=== PATIENT | female | born 1945 | race African-American/Black ===

== ENCOUNTER 2017-09-04 23:04 | Inpatient (IN) | payer OTHER ==
[2017-09-05 01:23] LABS: Urine Blood NEGATIVE (NEG); Urine Glucose NEGATIVE (NEG); Urine Protein 2+ (NEG)
[2017-09-05] MEDS ORDERED: MECLIZINE HCL 12.5 MG TAB ONE (01:59)
[2017-09-05] MEDS ORDERED: CEFTRIAXONE/SWI 1gm 1 GM/10 ML SYR ONE (02:00)
[2017-09-05] MEDS ORDERED: NA CHLORIDE 0.9% 1,000 ML ONE ×2 (02:00→05:58)
[2017-09-05] MEDS ORDERED: ONDANSETRON 4 MG/2 ML VIAL ONE (02:00)
[2017-09-05 02:51] LABS: Protime INR 0.94
[2017-09-05 03:03] LABS: Potassium 4.5 mEq/L (3.6-5.0)
[2017-09-05 03:06] LABS: Absolute Monocytes 0.2 K/uL (0.1-1.3); Absolute Neutrophil 10.7 K/uL (1.8-8.0); Basophils % 0.4 % (0-1.3); Hematocrit 36.5 % (36.0-45.0); Lymphocytes % 8.6 % (15.3-44.8); MCH 26.4 pg (27.0-35.0); MCV 82.8 fL (80-100); MPV 8.9 fL (7.6-11.3); Monocytes % 1.8 % (3.3-12.3); RBC Red Blood Cell Count 4.41 M/uL (3.86-4.86)
[2017-09-05 03:09] LABS: Bilirubin Direct 0.1 mg/dL (0-0.2); Bilirubin Total 0.5 mg/dL (0.3-1.2); Magnesium 2.1 mg/dL (1.8-2.5); Protein, Total 7.9 g/dL (6.0-8.3)
[2017-09-05 03:12] LABS: CKMB Creatine Kinase MB 5.6 ng/ml (0.3-4.0)
--- NOTE | 2017-09-05 03:23 | EDPHYS ---
Physician Documentation [facility] Name: Svetlana Rader Age: 72 yrs Sex: Female : 1945 Arrival Date: 09/04/2017 Time: 23:10 Bed 20 Private MD: ED Physician Butch Park HPI: 09/05 01:12 This 72 yrs old Black Female presents to ER via Ambulatory with complaints of Vomiting, joanie Dizziness. 01:12 The patient presents to the emergency department with nausea, vomiting. Onset: The joanie symptoms/episode began/occurred just prior to arrival, yesterday. Possible causes: unknown. The symptoms are aggravated by nothing. The symptoms are alleviated by nothing. Associated signs and symptoms: Pertinent positives: nausea, vomiting. Severity of symptoms: At their worst the symptoms were mild in the emergency department the symptoms are unchanged. The patient has not experienced similar symptoms in the past. Historical: - Allergies: 09/04 23:48 tramadol; kb1 - Home Meds: 23:48 Metoprolol Tartrate Oral [Active]; valsartan oral oral [Active]; kb1 - PMHx: 23:48 Hypertension; kb1 - Immunization history:: Pneumococcal vaccine is up to date, Flu vaccine is up to date. - Social history:: Smoking status: Patient/guardian denies using tobacco. - Family history:: not pertinent. ROS: 09/05 01:12 Constitutional: Negative for fever, chills, and weight loss, Eyes: Negative for injury, joanie pain, redness, and discharge, ENT: Negative for injury, pain, and discharge, Neck: Negative for injury, pain, and swelling, Cardiovascular: Negative for chest pain, palpitations, and edema, Respiratory: Negative for shortness of breath, cough, wheezing, and pleuritic chest pain, Abdomen/GI: Negative for abdominal pain, nausea, vomiting, diarrhea, and constipation, Back: Negative for injury and pain, : Negative for injury, bleeding, discharge, and swelling, MS/Extremity: Negative for injury and deformity, Skin: Negative for injury, rash, and discoloration, Psych: Negative for depression, anxiety, suicide ideation, homicidal ideation, and hallucinations, Allergy/Immunology: Negative for hives, rash, and allergies, Endocrine: Negative for neck swelling, polydipsia, polyuria, polyphagia, and marked weight changes, Hematologic/Lymphatic: Negative for swollen nodes, abnormal bleeding, and unusual bruising. Neuro: Positive for headache. Exam: 01:12 Constitutional: This is a well developed, well nourished patient who is awake, alert, joanie and in no acute distress. Head/Face: Normocephalic, atraumatic. Eyes: Pupils equal round and reactive to light, extra-ocular motions intact. Lids and lashes normal. Conjunctiva and sclera are non-icteric and not injected. Cornea within normal limits. Periorbital areas with no swelling, redness, or edema. ENT: Nares patent. No nasal discharge, no septal abnormalities noted. Tympanic membranes are normal and external auditory canals are clear. Oropharynx with no redness, swelling, or masses, exudates, or evidence of obstruction, uvula midline. Mucous membranes moist. Neck: Trachea midline, no thyromegaly or masses palpated, and no cervical lymphadenopathy. Supple, full range of motion without nuchal rigidity, or vertebral point tenderness. No Meningismus. Chest/axilla: Normal chest wall appearance and motion. Nontender with no deformity. No lesions are appreciated. Cardiovascular: Regular rate and rhythm with a normal S1 and S2. No gallops, murmurs, or rubs. Normal PMI, no JVD. No pulse deficits. Respiratory: Lungs have equal breath sounds bilaterally, clear to auscultation and percussion. No rales, rhonchi or wheezes noted. No increased work of breathing, no retractions or nasal flaring. Abdomen/GI: Soft, non-tender, with normal bowel sounds. No distension or tympany. No guarding or rebound. No evidence of tenderness throughout. Back: No spinal tenderness. No costovertebral tenderness. Full range of motion. Female : Normal external genitalia. Skin: Warm, dry with normal turgor. Normal color with no rashes, no lesions, and no evidence of cellulitis. MS/ Extremity: Pulses equal, no cyanosis. Neurovascular intact. Full, normal range of motion. Neuro: Awake and alert, GCS 15, oriented to person, place, time, and situation. Cranial nerves II-XII grossly intact. Motor strength 5/5 in all extremities. Sensory grossly intact. Cerebellar exam normal. Normal gait. Psych: Awake, alert, with orientation to person, place and time. Behavior, mood, and affect are within normal limits. Vital Signs: 09/04 23:48 BP 181 / 63; Pulse 61; Resp 18; Temp 98.8; Pulse Ox 95% ; Weight 99.79 kg; Height 5 ft. kb1 0 in. (152.40 cm); Pain 0/10; 09/05 00:55 BP 157 / 66; Pulse 59; Resp 18; Pulse Ox 97% ; kb1 02:41 BP 191 / 63; Pulse 64; Resp 18; Pulse Ox 98% ; kb1 03:11 BP 158 / 62; Pulse 55; Resp 18; Pulse Ox 96% ; kb1 05:03 BP 144 / 55; Pulse 58; Resp 18; Pulse Ox 97% on R/A; Pain 0/10; aa1 09/04 23:48 Body Mass Index 42.97 (99.79 kg, 152.40 cm) kb1 NIH Stroke Scale Scores: 03:19 NIHSS Score: 0 joanie MDM: 01:07 Patient medically screened. joanie 01:14 Data reviewed: vital signs, lab test result(s), EKG, radiologic studies. joanie 03:28 ED course: no tpa symptoms began at 6-7am, in the morning. [facility] 09/05 00:58 Order name: Urine Dipstick--Ancillary (enter results); Complete Time: 03:12 em1 09/05 01:11 Order name: Basic Metabolic Panel; Complete Time: 03:14 joanie 09/05 01:11 Order name: BNP [facility] 09/05 01:11 Order name: CBC with Diff joanie 09/05 01:11 Order name: Ckmb; Complete Time: 03:14 [facility] 09/05 01:11 Order name: CPK; Complete Time: 03:14 [facility] 09/05 01:11 Order name: LFT's; Complete Time: 03:14 [facility] 09/05 01:11 Order name: Magnesium; Complete Time: 03:14 [facility] 09/05 01:11 Order name: PT-INR; Complete Time: 03:12 joanie 09/05 01:11 Order name: Ptt, Activated; Complete Time: 03:12 joanie 09/05 01:11 Order name: Troponin (emerg Dept Use Only); Complete Time: 03:12 [facility] 09/05 01:11 Order name: Lipase; Complete Time: 03:14 [facility] 09/05 01:11 Order name: Urine Culture [facility] 09/05 03:07 Order name: Manual Differential [facility] 09/05 00:58 Order name: Urine Dipstick-Ancillary (obtain specimen); Complete Time: 00:58 em1 09/05 01:11 Order name: XRAY Chest (1 view) [facility] 09/05 01:11 Order name: EKG; Complete Time: 01:12 [facility] 09/05 01:11 Order name: Cardiac monitoring; Complete Time: 02:43 [facility] 09/05 01:11 Order name: EKG - Nurse/Tech; Complete Time: 02:43 [facility] 09/05 01:11 Order name: IV Saline Lock; Complete Time: 02:43 [facility] 09/05 01:11 Order name: CT Head Brain wo Cont [facility] 09/05 03:28 Order name: CONS Physician Consult [facility] 09/05 03:28 Order name: Echo with Doppler [facility] 09/05 03:28 Order name: Stroke Protocol [facility] 09/05 01:11 Order name: Labs collected and sent; Complete Time: 02:43 [facility] 09/05 01:11 Order name: O2 Per Protocol; Complete Time: 02:43 [facility] 09/05 01:11 Order name: O2 Sat Monitoring; Complete Time: 02:43 [facility] Administered Medications: 02:43 Drug: NS 0.9% 1000 ml Route: IV; Rate: 1 bolus; Site: right antecubital; kb1 04:00 Follow up: IV Status: Completed infusion aa1 02:44 Drug: Meclizine 50 mg Route: PO; kb1 03:45 Follow up: Response: No adverse reaction; Marked relief of symptoms aa1 02:44 Drug: Zofran 4 mg Route: IVP; Site: right antecubital; kb1 03:45 Follow up: Response: No adverse reaction; Nausea is decreased aa1 02:44 Drug: Rocephin - (cefTRIAXone) 1 grams Route: IVPB; Infused Over: 5 mins; Site: right kb1 antecubital; 03:15 Follow up: IV Status: Completed infusion aa1 03:35 Drug: foLIC Acid 1 mg Route: IVPB; Site: right antecubital; aa1 03:50 Follow up: IV Status: Completed infusion aa1 03:35 Drug: Aspirin Chewable Tablet 324 mg Route: PO; aa1 04:30 Follow up: Response: No adverse reaction aa1 Disposition: 09/05/17 03:22 Hospitalization ordered by Loren Soliman for Observation. Preliminary diagnosis are Vomiting, Headache, Dizziness and giddiness, Cystitis. - Bed requested for Telemetry/MedSurg (observation). - Status is Observation. ss - Condition is Fair. - Problem is new. - Symptoms have improved. UTI on Admission? Yes NIH Stroke Scale - NIH Stroke Score Date: 09/05/2017 Time: 03:19 Total Score = 0 1a. Level of Consciousness (LOC) - 0(Alert) 1b. Level of Consciousness (LOC) (Year \T\ Age) - 0(Both) 1c. LOC Commands (Open \T\ Closes Eyes/Hot Cell Technician) - 0(Both) 2. Best Gaze (Lateral Gaze Paresis) - 0(Normal) 3. Visual Field Loss - 0(No visual loss) 4. Facial Palsy - 0(Normal) 5a. Left Arm: Motor (10-second hold) - 0(No drift) 5b. Right Arm: Motor (10-second hold) - 0(No drift) 6a. Left Leg: Motor (5-second hold - always test supine) - 0(No drift) 6b. Right Leg: Motor (5-second hold - always test supine) - 0(No drift) 7. Limb Ataxia (finger/nose \T\ heel/lin - test with eyes open) - 0(Absent) 8. Sensory Loss (pinprick arms/legs/face) - 0(Normal) 9. Best Language: Aphasia (description/naming/reading) - 0(No aphasia) 10. Dysarthria (speech clarity - read or repeat words) - 0(Normal) 11. Extinction and Inattention (visual/tactile/auditory/spatial/personal) - 0(No abnormality) Initials: joanie Signatures: Dispatcher [employer] EDMS Lizzette Bell RN RN mw Annie Jaime RN RN aa1 Butch Park MD MD cha Martinez, Eric em1 Angella Harris RN RN ss Brown, Kristina, RN RN kb1
--- NOTE | 2017-09-05 03:23 | ER ---
Nurse's Notes [facility] Name: Svetlana Rader Age: 72 yrs Sex: Female : 1945 Arrival Date: 09/04/2017 Time: 23:10 Bed 20 Private MD: Diagnosis: Vomiting;Headache;Dizziness and giddiness;Cystitis Presentation: 09/04 23:45 Presenting complaint: Patient states: reports dizziness that started this evening after kb1 sitting on the toilet. Also having nausea and vomiting. Transition of care: patient was not received from another setting of care. Onset of symptoms was September 04, 2017. Care prior to arrival: None. 23:45 Method Of Arrival: Ambulatory kb1 23:45 Acuity: AYAD 3 kb1 Triage Assessment: 23:48 General: Appears in no apparent distress. Behavior is cooperative. Pain: Denies pain. kb1 Neuro: Level of Consciousness is awake, alert, obeys commands, Oriented to person, place, time, situation. Cardiovascular: Denies chest pain, shortness of breath, Patient's skin is warm and dry. Respiratory: Airway is patent Respiratory effort is even, unlabored, Respiratory pattern is regular, symmetrical. GI: Reports nausea, vomiting. : No signs and/or symptoms were reported regarding the genitourinary system. Historical: - Allergies: 23:48 tramadol; kb1 - Home Meds: 23:48 Metoprolol Tartrate Oral [Active]; valsartan oral oral [Active]; kb1 - PMHx: 23:48 Hypertension; kb1 - Immunization history:: Pneumococcal vaccine is up to date, Flu vaccine is up to date. - Social history:: Smoking status: Patient/guardian denies using tobacco. - Family history:: not pertinent. Screenin:52 Abuse screen: Denies threats or abuse. Nutritional screening: No deficits noted. kb1 Tuberculosis screening: No symptoms or risk factors identified. Fall Risk Secondary diagnosis (15 points) dizziness. 09/05 03:30 Patient has been NPO before screening. The patient is alert, able to follow commands. aa1 The patient does not exhibit slurred or garbled speech The patient is not exhibiting difficulty speaking. The patient does not exhibit difficulty understanding words. The patient is able to swallow own secretions with no drooling or need for suction. Patient tolerated one teaspoon of water. No drooling, immediate coughing, gurgling, or clearing of the throat was noted. The patient tolerated 90mL of water. No drooling, immediate coughing, gurgling, or clearing of the throat was noted. The patient passed the bedside swallow screening. Oral medications may be given as ordered. Contact Physician for further diet orders. Assessment: 09/04 23:52 Reassessment: see triage assessment. kb1 09/05 00:46 Reassessment: Patient appears in no apparent distress at this time. Patient and/or kb1 family updated on plan of care and expected duration. Pain level reassessed. Patient is alert, oriented x 3, equal unlabored respirations, skin warm/dry/pink. Assisted to restroom and back to bed. Reports that dizziness and nausea have decreased. 02:41 Reassessment: Patient appears in no apparent distress at this time. Patient and/or kb1 family updated on plan of care and expected duration. Pain level reassessed. Patient is alert, oriented x 3, equal unlabored respirations, skin warm/dry/pink. 03:11 Reassessment: Patient appears in no apparent distress at this time. Patient and/or kb1 family updated on plan of care and expected duration. Pain level reassessed. Patient is alert, oriented x 3, equal unlabored respirations, skin warm/dry/pink. 04:00 Reassessment: Patient appears in no apparent distress at this time. Patient and/or aa1 family updated on plan of care and expected duration. Pain level reassessed. Patient is alert, oriented x 3, equal unlabored respirations, skin warm/dry/pink. Awaiting bed assignment. 05:03 Reassessment: Patient appears in no apparent distress at this time. Patient and/or aa1 family updated on plan of care and expected duration. Pain level reassessed. Patient is alert, oriented x 3, equal unlabored respirations, skin warm/dry/pink. Awaiting bed assignment. Vital Signs: 09/04 23:48 BP 181 / 63; Pulse 61; Resp 18; Temp 98.8; Pulse Ox 95% ; Weight 99.79 kg; Height 5 ft. kb1 0 in. (152.40 cm); Pain 0/10; 09/05 00:55 BP 157 / 66; Pulse 59; Resp 18; Pulse Ox 97% ; kb1 02:41 BP 191 / 63; Pulse 64; Resp 18; Pulse Ox 98% ; kb1 03:11 BP 158 / 62; Pulse 55; Resp 18; Pulse Ox 96% ; kb1 05:03 BP 144 / 55; Pulse 58; Resp 18; Pulse Ox 97% on R/A; Pain 0/10; aa1 09/04 23:48 Body Mass Index 42.97 (99.79 kg, 152.40 cm) kb1 NIH Stroke Scale Scores: 03:19 NIHSS Score: 0 joanie ED Course: 09/04 23:10 Patient arrived in ED. do 23:44 Brandy Marquez, RN is Primary Nurse. kb1 23:46 Triage completed. kb1 23:48 Arm band placed on. kb1 23:52 Patient has correct armband on for positive identification. Placed in gown. Bed in low kb1 position. Call light in reach. Side rails up X 1. radiation monitor on. Pulse ox on. NIBP on. 23:52 No provider procedures requiring assistance completed. kb1 09/05 01:07 Butch Park MD is Attending Physician. joanie 02:15 CT Head Brain wo Cont In Process Unspecified. EDMS 02:18 X-ray completed. Portable x-ray completed in exam room. Patient tolerated procedure kw well. 02:20 XRAY Chest (1 view) In Process Unspecified. EDMS 02:42 Inserted saline lock: 20 gauge in right antecubital area, using aseptic technique. kb1 Blood collected. 02:45 EKG done, by ED staff, reviewed by Butch Park MD. kb1 03:11 Report given to Annie MORGAN. kb1 03:21 Loren Soliman MD is Hospitalizing Provider. joanie 05:00 Patient admitted, IV remains in place. aa1 07:03 Ultrasound completed. Patient tolerated well. aa4 07:19 Patient moved to MRI via wheelchair. em2 07:51 MRI completed. Patient tolerated well. Patient moved back from MRI. em2 Administered Medications: 02:43 Drug: NS 0.9% 1000 ml Route: IV; Rate: 1 bolus; Site: right antecubital; kb1 04:00 Follow up: IV Status: Completed infusion aa1 02:44 Drug: Meclizine 50 mg Route: PO; kb1 03:45 Follow up: Response: No adverse reaction; Marked relief of symptoms aa1 02:44 Drug: Zofran 4 mg Route: IVP; Site: right antecubital; kb1 03:45 Follow up: Response: No adverse reaction; Nausea is decreased aa1 02:44 Drug: Rocephin - (cefTRIAXone) 1 grams Route: IVPB; Infused Over: 5 mins; Site: right kb1 antecubital; 03:15 Follow up: IV Status: Completed infusion aa1 03:35 Drug: foLIC Acid 1 mg Route: IVPB; Site: right antecubital; aa1 03:50 Follow up: IV Status: Completed infusion aa1 03:35 Drug: Aspirin Chewable Tablet 324 mg Route: PO; aa1 04:30 Follow up: Response: No adverse reaction aa1 Outcome: 03:22 Decision to Hospitalize by Provider. joanie 05:00 Admitted to ER Hold. [facility]. aa1 05:00 Condition: stable 05:00 Instructed on the need for admit, Demonstrated understanding of instructions. 08:13 Patient left the ED. NIH Stroke Scale - NIH Stroke Score Date: 09/05/2017 Time: 03:19 Total Score = 0 1a. Level of Consciousness (LOC) - 0(Alert) 1b. Level of Consciousness (LOC) (Year \T\ Age) - 0(Both) 1c. LOC Commands (Open \T\ Closes Eyes/Jira Developer) - 0(Both) 2. Best Gaze (Lateral Gaze Paresis) - 0(Normal) 3. Visual Field Loss - 0(No visual loss) 4. Facial Palsy - 0(Normal) 5a. Left Arm: Motor (10-second hold) - 0(No drift) 5b. Right Arm: Motor (10-second hold) - 0(No drift) 6a. Left Leg: Motor (5-second hold - always test supine) - 0(No drift) 6b. Right Leg: Motor (5-second hold - always test supine) - 0(No drift) 7. Limb Ataxia (finger/nose \T\ heel/lin - test with eyes open) - 0(Absent) 8. Sensory Loss (pinprick arms/legs/face) - 0(Normal) 9. Best Language: Aphasia (description/naming/reading) - 0(No aphasia) 10. Dysarthria (speech clarity - read or repeat words) - 0(Normal) 11. Extinction and Inattention (visual/tactile/auditory/spatial/personal) - 0(No abnormality) Initials: joanie Signatures: Dispatcher [employer] EDAnnie Araiza RN RN aa1 Butch Park MD MD cha Frazier, Amanda aa4 Angella Harris RN RN ss Melva Sullivan Enrique em2 Violet Read Kristina RN RN kb1 Corrections: (The following items were deleted from the chart) 00:55 00:46 Reassessment: Patient appears in no apparent distress at this time. kb1 Patient and/or family updated on plan of care and expected duration. Pain level reassessed. Patient is alert, oriented x 3, equal unlabored respirations, skin warm/dry/pink. Assisted to restroom and back to bed kb1
[2017-09-05 03:28] LABS: Blood Morphology Comment NOT SEEN (NOT SEEN); Platelet Estimate ADEQ
[2017-09-05] MEDS ORDERED: ASPIRIN 81 MG CHEWABLE TABLET ONE (03:28)
[2017-09-05] MEDS ORDERED: FOLIC ACID 5 MG/ML VIAL ONE (03:30)
[2017-09-05] MEDS ORDERED: ONDANSETRON 4 MG/2 ML VIAL IV PRN (05:48)
[2017-09-05] MEDS ORDERED: MORPHINE 2 MG/ML SYR IV PRN (05:48)
[2017-09-05] MEDS ORDERED: ACETAMINOPHEN 500 MG TAB PO PRN (05:48)
[2017-09-05] MEDS ORDERED: HYDRALAZINE HCL 20 MG/ML VIAL IV PRN (05:51)
--- NOTE | 2017-09-05 05:52 | P.HP ---
Certification for Inpatient Patient admitted to: Observation With expected LOS: <2 Midnights Patient will require the following post-hospital care: None Practitioner: I am a practitioner with admitting privileges, knowledge of patient current condition, hospital course, and medical plan of care. Services: Services provided to patient in accordance with Admission requirements found in Title 42 Section 412.3 of the Code of Federal Regulations Patient History Date of Service: 09/05/17 Reason for admission: Nausea/vomiting/near syncope History of Present Illness: Patient is a 72-year-old female came to the hospital with a near syncopal event. Patient was having nausea and vomiting and started feel faint. She fell like she was going to pass out so she decided to sit down. She denied having any abdominal pain. She denies having any diarrhea. Her episode of feeling faint past. She gradually started improving. Her symptoms started around 6:00 p.m.. She came to the hospital after midnight. Initially her blood pressure was elevated. We started her blood pressure medications in her symptoms are improving. She was admitted to the hospital for further evaluate Allergies tramadol Allergy (Verified 09/05/17 05:20) Itching/Hives/Rash Home Medications: Aspirin [Aspir-Low] 1 pill PO DAILY 09/05/17 Metoprolol Tartrate [Metoprolol Tartrate] 1 pill PO DAILY 09/05/17 Pyridoxine HCl [Vitamin B-6] 1 pill PO DAILY 09/05/17 Valsartan/Hydrochlorothiazide [Valsartan-Hctz 160-25 mg Tab] 1 tab PO DAILY 05/13 - Past Medical/Surgical History -: Hypertension -: Osteoarthritis -: Bilateral knee replacement - Family History Father Family History: Reviewed- Non-Contributory - Social History Smoking Status: Never smoker Alcohol use: No CD- Drugs: No Review of Systems 10-point ROS is otherwise unremarkable Physical Examination - Vital Signs Temperature: 98 F Blood Pressure: 190/90 Pulse: 80 Respirations: 18 Pulse Ox (%): 95 - Physical Exam General: Alert, In no apparent distress, Oriented x3 HEENT: Atraumatic, PERRLA, Mucous membr. moist/pink, EOMI, Sclerae nonicteric Neck: Supple, 2+ carotid pulse no bruit, No LAD, Without JVD or thyroid abnormality Respiratory: Clear to auscultation bilaterally, Normal air movement Cardiovascular: Regular rate/rhythm, Normal S1 S2, No murmurs Gastrointestinal: Normal bowel sounds, Soft and benign, Non-distended, No tenderness Musculoskeletal: No clubbing, No swelling, No tenderness Integumentary: No rashes Neurological: Normal gait, Normal speech, Normal tone, Cranial nerves 3-12 intact, Normal affect, Abnormal strength (Her strength is 5/5 except for her left lower extremity which is a 4/5 because of knee replacement) Lymphatics: No axilla or inguinal lymphadenopathy - Studies Laboratory Data (last 24 hrs) 09/05/17 02:30: PT 11.1, INR 0.94, APTT 28.4 09/05/17 02:30: WBC 12.0 H, Hgb 11.6 L, Hct 36.5, Plt Count 264 09/05/17 02:30: B-Natriuretic Peptide 129 H 09/05/17 02:30: Sodium 135, Potassium 4.5, BUN 17, Creatinine 1.04 H, Glucose 129 H, Magnesium 2.1, Total Bilirubin 0.5, AST 25, ALT 15, Alkaline Phosphatase 40 L, Lipase 16 L Assessment & Plan - Problems (Diagnosis) (1) Intractable nausea and vomiting Current Visit: Yes Status: Acute (2) Near syncope Current Visit: Yes Status: Acute (3) History of hypertension Current Visit: Yes Status: Acute (4) Morbid obesity Current Visit: Yes Status: Acute - Plan Plan: 1. Continue with gentle hydration 2. Anti emetics 3. Anti-platelet therapy and statin therapy 4. Blood pressure control 5. Neurology consultation and MRI of the brain have been ordered 6. Orthostatics 7. PT evaluation 8. Speech Therapy eval 9. Add Norvasc to blood pressure medications 10. GI and DVT prophylaxis - Advance Directives Does patient have a Living Will: Yes Does patient have a Durable POA for Healthcare: Yes - Code Status/Comfort Care Code Status Assessed: Yes Code Status: Full Code Critical Care: No Time Spent Managing PTS Care (In Minutes): 50
[2017-09-05] MEDS ORDERED: METOPROLOL XL 50 MG TAB PO ONE (05:58)
[2017-09-05] MEDS: NA CHLORIDE 0.9% 1,000 ML IV SCH ×2 (06:00→17:28)
[2017-09-05] MEDS: METOPROLOL TAR 25 MG TAB PO SCH ×2 (06:00→17:27)
--- NOTE | 2017-09-05 07:00 | EKG ---
Test Date: 2017-09-05 Test Time: 02:35:44 [employer]: [employer] MEASUREMENT RESULTS: Intervals: Rate: 55 AR: 186 QRSD: 96 QT: 446 QTc: 426 [place]: P: 49 AR: 186 QRS: -2 T: -4 INTERPRETIVE STATEMENTS: Sinus bradycardia Otherwise normal ECG Compared to ECG 05/23/2007 08:16:45 Sinus rhythm no longer present Electronically Signed On 09-05-17 06:59:59 CDT by Evan Gamez
[2017-09-05] MEDS ORDERED: MORPHINE 4 MG/ML SYR IV PRN (07:33)
--- NOTE | 2017-09-05 08:10 | RAD REPORT ---
EXAM DESCRIPTION: Shaji Single View09/05/2017 2:24 am CLINICAL HISTORY: Cough COMPARISON: 2006 FINDINGS: The lungs appear clear of acute infiltrate. The heart is mildly to moderately enlarged IMPRESSION: No acute abnormalities displayed
[2017-09-05] MEDS ORDERED: AMLODIPINE 10 MG TAB PO SCH (09:00)
--- NOTE | 2017-09-05 09:05 | RAD REPORT ---
EXAM DESCRIPTION: CT - Head Brain Wo Cont - 09/05/2017 6:46 am CLINICAL HISTORY: Dizziness with vomiting COMPARISON: None TECHNIQUE: Computed axial tomography of the head was obtained. IV contrast was not requested.A preli minary report was generated by [employer]. and reviewed prior to dictation All CT scans are performed using dose optimization technique as appropriate and may include automated exposure control or mA/KV adjustment according to patient size. FINDINGS: An intracranial bleed is not seen . The ventricles are normal in caliber. No extra-axial fluid collection is noted. A 2 centimeter low-density area within the left frontal lob e probably represents an old infarct. Subtle small low-density is present within left cerebellar vermis. Fluid within the sinuses/ mastoids is not seen. IMPRESSION: Small low-density area within the left cerebellar vermis suspicious for an acute infarct . The exam was discussed with Dr. Pardo 9 a.m. September 05, 2017
--- NOTE | 2017-09-05 09:17 | RAD REPORT ---
EXAM DESCRIPTION: MRI - Brain Wo Cont - 09/05/2017 7:42 am CLINICAL HISTORY: Dizziness, TIA COMPARISON: September 05, [address] TECHNIQUE: Axial, sagittal, and coronal magnetic images of the brain were obtained. Contrast was not requested FINDINGS: A 2 centimeter area of abnormal signal within the left frontal lobe has the appearance of an old infarction. Diffusion-weighted/ADC mapping demonstrates an approximately 15 millimeter patchy area of abnormal si gnal within the left cerebellar vermis consistent with an acute infarct. . The ventricles are normal caliber. 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
--- NOTE | 2017-09-05 09:32 | RAD REPORT ---
EXAM DESCRIPTION: VASCarotid Artery Bilateral09/05/2017 7:04 am CLINICAL HISTORY: CVA COMPARISON: None FINDINGS: The velocity of the right internal carotid artery equals 132 cm/sec. The right ICA/CCA rat io 1.9 The velocity of the left internal carotid artery equals 128 cm/sec. The left ICA/CCA ratio 1.6 The internal carotid arteries are tortuous. Minimal plaque is present. The vertebral arteries demonstrate antegrade flow IMPRESSION: Elevation of the internal carotid artery velocity secondary to tortuosity. A hemodynamic ally significant stenosis is not present
[2017-09-05] MEDS: ASPIRIN EC 81 MG TAB PO SCH (09:35)
[2017-09-05] MEDS: VALSARTAN 160 MG TAB PO SCH ×2 (09:35→20:50)
[2017-09-05] MEDS: CLOPIDOGREL 75 MG TABLET PO SCH (09:35)
--- NOTE | 2017-09-05 09:45 | P.PN ---
Subjective Date of Service: 09/05/17 Primary Care Provider: Dr. Smith([place], [place]) Chief Complaint: Nausea/vomiting/near syncope Subjective: Improving (Patient without any significant nausea, vomiting or dizziness at this time.) Physical Examination - Vital Signs Temperature: 97 F Blood Pressure: 147/65 Pulse: 54 Respirations: 18 Pulse Ox (%): 95 - Physical Exam General: Alert, In no apparent distress, Oriented x3, Cooperative HEENT: Atraumatic, Normocephalic Neck: Supple Respiratory: Clear to auscultation bilaterally, Normal air movement Cardiovascular: Normal pulses, Regular rate/rhythm Gastrointestinal: Normal bowel sounds, Soft and benign, Non-distended, No tenderness, No masses, No rebound, No guarding Musculoskeletal: No erythema, No tenderness, No warmth Integumentary: No tenderness/swelling, No erythema, No warmth, No cyanosis Neurological: Normal speech, Normal strength at 5/5 x4 extr, Normal tone, Normal affect, Other (Arthritic changes noted to her hands) - Studies Laboratory Data (last 24 hrs) 09/05/17 02:30: PT 11.1, INR 0.94, APTT 28.4 09/05/17 02:30: WBC 12.0 H, Hgb 11.6 L, Hct 36.5, Plt Count 264 09/05/17 02:30: B-Natriuretic Peptide 129 H 09/05/17 02:30: Sodium 135, Potassium 4.5, BUN 17, Creatinine 1.04 H, Glucose 129 H, Magnesium 2.1, Total Bilirubin 0.5, AST 25, ALT 15, Alkaline Phosphatase 40 L, Lipase 16 L Medications List Reviewed: Yes Assessment & Plan - Problems (Diagnosis) (1) CVA (cerebral vascular accident) Current Visit: Yes Status: Acute Plan: MRI reviewed with radiology. Patient has a 15 mm area indicating acute infarct to the left cerebellum vermis. There is also a 2 cm area to the left frontal lobe that appears to be an old CVA. Patient came in with nausea, vomiting and dizziness. Patient without symptoms at this time. No other focal deficits noted. Will evaluate swallowing. Will have physical therapy, occupational therapy evaluate. Neurology has been consulted to further assess. Patient with hypertension. Will adjust medication. Patient previously taking aspirin 81 mg daily. Will continue with this. Will add Plavix and statin medication. [facility] Await further recommendations from neurology. Patient may require inpatient rehab versus home with home health. Qualifiers: Laterality of affected vessel: left (2) Dizziness Current Visit: Yes Status: Acute Plan: Secondary to CVA. Continue with above plan of care. This appears resolved. (3) Nausea and vomiting Current Visit: Yes Status: Acute Plan: This appears resolved. Will provide medication as needed. Secondary to above. Will continue with above plan of care. Qualifiers: Vomiting type: unspecified Vomiting Intractability: unspecified Qualified Code(s): R11.2 - Nausea with vomiting, unspecified (4) Hypertension Current Visit: Yes Status: Chronic Plan: Patient with hypertension. Will continue with medication. Will monitor closely. Qualifiers: Hypertension type: essential hypertension Qualified Code(s): I10 - Essential (primary) hypertension (5) Obesity Current Visit: Yes Status: Chronic Plan: Will address lifestyle modification education. Qualifiers: Obesity type: due to excess calories Obesity classification: adult class 3 (BMI >= 40) Serious obesity comorbidity presence: with serious comorbidity Body mass index: BMI 40.0-44.9 Qualified Code(s): E66.01 - Morbid (severe) obesity due to excess calories; Z68.41 - Body mass index (BMI) 40.0-44.9, adult ; Z68.41 - Body mass index (BMI) 40.0-44.9, adult; Z68.41 - Body mass index (BMI ) 40.0-44.9, adult; Z68.41 - Body mass index (BMI) 40.0-44.9, adult (6) Near syncope Current Visit: Yes Status: Acute Plan: Will continue with above plan of care. (7) Hyperlipidemia Current Visit: Yes Status: Suspected Plan: Will start statin medication. Await fasting lipid panel. Discharge Plan: Other (Home versus inpatient rehab) Plan to discharge in: 24 Hours Time Spent Managing Pts Care (In Minutes): 55
[2017-09-05 10:29] LABS: Thyroid Stimulating Hormone 0.72 uIU/mL (0.34-5.60)
--- NOTE | 2017-09-05 16:25 | ECHO ---
HEIGHT: 5 ft 0 in WEIGHT: 212 lb 11.2 oz DATE OF STUDY: 09/05/[address]: Butch Park MD 2-DIMENSIONAL: YES M.MODE: YES DOPPLER: YES COLOR FLOW: YES TDS: NO PORTABLE: NO DEFINITY: NO BUBBLE STUDY: NO DIAGNOSIS: TRANSIENT ISCHEMIC ATTACK, CEREBRAL VASCULAR ACCIDENT CARDIAC HISTORY: CATHERIZATION: NO SURGERY: NO PROSTHETIC VALVE: NO PACEMAKER: NO MEASUREMENTS (cm) DIASTOLIC (NORMALS) SYSTOLIC (NORMALS) IVSd 1.1 (0.6-1.2) LA Diam 3.0 (1.9-4.0) LVEF 76% LVIDd 4.5 (3.5-5.7) LVIDs 2.5 (2.0-3.5) %FS 44% LVPWd 1.1 (0.6-1.2) Ao Diam 2.5 (2.0-3.7) 2 DIMENSIONAL ASSESSMENT: RIGHT ATRIUM: NORMAL LEFT ATRIUM: NORMAL RIGHT VENTRICLE: NORMAL LEFT VENTRICLE: NORMAL TRICUSPID VALVE: NORMAL MITRAL VALVE: NORMAL PULMONIC VALVE: NORMAL AORTIC VALVE: NORMAL PERICARDIAL EFFUSION: NONE AORTIC ROOT: NORMAL LEFT VENTRICULAR WALL MOTION: NORMAL DOPPLER/COLOR FLOW: MILD TRICUSPID REGURGITATION. NORMAL RIGHT VENTRICULAR SYSTOLIC PRESSURE. COMMENTS: NORMAL LEFT VENTRICULAR SIZE AND FUNCTION. NO WALL MOTION ABNORMALITY. NO EFFUSION. NO THROMBUS. NO VEGETATION. TECHNOLOGIST: Olivia CHOI
[2017-09-05] MEDS ORDERED: ENOXAPARIN 40 MG/0.4 ML SQ SCH (17:00)
[2017-09-05] MEDS: PYRIDOXINE (VIT B6) 50 MG TAB PO SCH (17:28)
[2017-09-05] MEDS ORDERED: ATORVASTATIN 40 MG TAB PO SCH (21:00)
[2017-09-05] MEDS ORDERED: ATORVASTATIN 20 MG TAB PO SCH (21:00)
[2017-09-06] MEDS ORDERED: VALSARTAN 160 MG TAB PO SCH (01:09)
[2017-09-06] MEDS ORDERED: METOPROLOL TAR 25 MG TAB PO SCH (01:09)
[2017-09-06 03:01] VITALS: O2SAT 98
[2017-09-06] MEDS: NA CHLORIDE 0.9% 1,000 ML IV SCH ×2 (04:33→05:44)
[2017-09-06 04:46] LABS: Absolute Lymphocytes (CBC) 2.8 K/uL (0.7-4.9); Absolute Monocytes 0.6 K/uL (0.1-1.3); Absolute Neutrophil 4.7 K/uL (1.8-8.0); Basophils % 0.8 % (0-1.3); Eosinophils % 2.4 % (0-4.4); Hematocrit 33.8 % (36.0-45.0); Lymphocytes % 33.6 % (15.3-44.8); MCH 26.6 pg (27.0-35.0); MCV 82.9 fL (80-100); MPV 8.7 fL (7.6-11.3); Monocytes % 6.7 % (3.3-12.3); RBC Red Blood Cell Count 4.07 M/uL (3.86-4.86)
[2017-09-06 05:54] LABS: Albumin 3.3 g/dL (3.2-5.5); Bilirubin Total 0.5 mg/dL (0.3-1.2); Potassium 4.4 mEq/L (3.6-5.0); Protein, Total 6.3 g/dL (6.0-8.3)
[2017-09-06 06:56] VITALS: BMI 43.6
[2017-09-06] MEDS: PYRIDOXINE (VIT B6) 50 MG TAB PO SCH (08:24)
[2017-09-06] MEDS: CLOPIDOGREL 75 MG TABLET PO SCH (08:24)
[2017-09-06] MEDS: ASPIRIN EC 81 MG TAB PO SCH (08:25)
[2017-09-06] MEDS ORDERED: FOLIC ACID 1 MG TABLET PO SCH (09:00)
--- NOTE | 2017-09-06 11:19 | P.DS ---
Admission Date: 09/05/17 Discharge Date: 09/06/17 Primary Care Provider: Dr. Smith([place], [place]) Disposition: ROUTINE DISCHARGE Discharge Condition: GOOD Reason for Admission: Nausea/vomiting/near syncope Consultations: Neurology-Dr. Bustos Procedures: Echocardiogram: Ejection fraction 76%. No effusion, vegetation or thrombus noted. Carotid Doppler: Tortuous carotid noted. No significant stenosis noted. MRI: FINDINGS: A 2 centimeter area of abnormal signal within the left frontal lobe has the appearance of an old infarction. Diffusion-weighted/ADC mapping demonstrates an approximately 15 millimeter patchy area of abnormal signal within the left cerebellar vermis consistent with an acute infarct. . The ventricles are normal caliber. An extra-axial fluid collection is not present Fluid within the sinuses/mastoids is not seen IMPRESSION: Acute infarct involving the left cerebellar vermis - Problems (1) CVA (cerebral vascular accident) Onset Date: 09/05/17 Current Visit: Yes Status: Acute Qualifiers: Laterality of affected vessel: left (2) Dizziness Onset Date: 09/05/17 Current Visit: Yes Status: Acute (3) Nausea and vomiting Onset Date: 09/05/17 Current Visit: Yes Status: Acute Qualifiers: Vomiting type: unspecified Vomiting Intractability: unspecified Qualified Code(s): R11.2 - Nausea with vomiting, unspecified (4) Hypertension Onset Date: 09/05/17 Current Visit: Yes Status: Chronic Qualifiers: Hypertension type: essential hypertension Qualified Code(s): I10 - Essential (primary) hypertension (5) Obesity Onset Date: 09/05/17 Current Visit: Yes Status: Chronic Qualifiers: Obesity type: due to excess calories Obesity classification: adult class 3 (BMI >= 40) Serious obesity comorbidity presence: with serious comorbidity Body mass index: BMI 40.0-44.9 Qualified Code(s): E66.01 - Morbid (severe) obesity due to excess calories; Z68.41 - Body mass index (BMI) 40.0-44.9, adult ; Z68.41 - Body mass index (BMI) 40.0-44.9, adult; Z68.41 - Body mass index (BMI ) 40.0-44.9, adult; Z68.41 - Body mass index (BMI) 40.0-44.9, adult (6) Near syncope Onset Date: 09/05/17 Current Visit: Yes Status: Acute (7) Hyperlipidemia Onset Date: 09/05/17 Current Visit: Yes Status: Suspected (8) Osteoarthritis Current Visit: Yes Status: Chronic Qualifiers: Osteoarthritis location: multiple joints Osteoarthritis type: unspecified Qualified Code(s): M15.9 - Polyosteoarthritis, unspecified (9) Renal insufficiency Current Visit: Yes Status: Acute Brief History of Present Illness: 72-year-old female presented emergency room with nausea, vomiting and dizziness. Patient with history of hypertension and arthritis. The patient was evaluated in the emergency room. CVA was suspected. The patient was admitted for further evaluation. Hospital Course: Patient presented with dizziness, nausea and vomiting. Patient found to have acute CVA to the left cerebellar vermis. MRI also showed previous left frontal lobe CVA. Patient did well during the course of her stay. Symptoms resolved quickly. Patient was able to walk with physical therapy with a walker. Patient had been getting physical therapy as an outpatient. Medications were added and adjusted during her stay. Patient did not want inpatient rehab or skilled placement. Patient preferred to go home. At discharge she will continue with physical therapy as an outpatient. Fall precautions addressed in detail. Medications have been adjusted. At discharge she will continue with aspirin 81 mg daily. New medications include Plavix 75 mg 1 pill daily, folic acid 1 mg daily and Lipitor 40 mg once daily. At discharge she will continue with aspirin 81 mg daily, Plavix 75 mg 1 pill once daily, folic acid 1 mg 1 pill once daily, and Lipitor 40 mg 1 pill once daily. Recommendation is for the patient to follow up with her PCP in 1-2 weeks to follow up this hospitalization and continue her care. Recommendations for the patient follow up with neurology in 1 week to establish care and monitor. Patient has hypertension. Medications have been adjusted. At discharge valsartan/hydrochlorothiazide has been discontinued. New medication valsartan 160 mg 1 pill twice daily has been started. At discharge she will continue with valsartan 160 mg 1 pill twice daily and metoprolol 100 mg daily. Recommendation is to maintain blood pressures less 150/80. Further adjustment can be done by her PCP. Patient has hyperlipidemia. Patient will continue with new medication-Lipitor 40 mg 1 pill once daily. Recommendation is to recheck lab in 1 month to monitor progress. Patient with arthritis. Fall precautions education will be provided. Patient continue with physical therapy as an outpatient. Patient may take Tylenol as needed for pain. Recommendation on no further use of nonsteroidal anti- inflammatories as the patient is taking aspirin and Plavix. At discharge patient had some mild renal insufficiency. Recommendation is to recheck BMP in 1 week to monitor progress. Valsartan has been increased for better blood pressure control. Medications may need to be adjusted in the near future if her renal insufficiency persist. Vital Signs/Physical Exam: Temp Pulse Resp BP Pulse Ox 98.1 F 60 18 150/67 H 96 09/06/17 08:00 09/06/17 08:24 09/06/17 08:00 09/06/17 08:24 09/06/17 08:00 General: Alert, In no apparent distress, Oriented x3, Cooperative HEENT: Atraumatic, Mucous membr. moist/pink Neck: Supple, No Thyromegaly Respiratory: Clear to auscultation bilaterally, Normal air movement Cardiovascular: Normal pulses, Regular rate/rhythm Gastrointestinal: Normal bowel sounds, Soft and benign, Non-distended, No tenderness, No masses, No rebound, No guarding Musculoskeletal: No erythema, No tenderness, No warmth Integumentary: No tenderness/swelling, No erythema, No warmth, No cyanosis Neurological: Normal speech, Normal strength at 5/5 x4 extr, Normal tone, Normal affect Laboratory Data at Discharge: WBC 8.3 K/uL (4.3-10.9) D 09/06/17 04:16 Hgb 10.8 g/dL (12.0-15.0) L 09/06/17 04:16 Hct 33.8 % (36.0-45.0) L 09/06/17 04:16 Plt Count 232 K/uL (152-406) 09/06/17 04:16 PT 11.1 SECONDS (9.5-12.5) 09/05/17 02:30 INR 0.94 09/05/17 02:30 APTT 28.4 SECONDS (24.3-36.9) 09/05/17 02:30 Sodium 140 mEq/L (135-145) 09/06/17 04:16 Potassium 4.4 mEq/L (3.6-5.0) 09/06/17 04:16 BUN 20 mg/dL (6-20) 09/06/17 04:16 Creatinine 1.10 mg/dL (0.44-1.00) H 09/06/17 04:16 Glucose 88 mg/dL (65-120) 09/06/17 04:16 Magnesium 2.1 mg/dL (1.8-2.5) 09/05/17 02:30 Total Bilirubin 0.5 mg/dL (0.3-1.2) 09/06/17 04:16 AST 18 IU/L (10-42) 09/06/17 04:16 ALT 14 IU/L (10-60) 09/06/17 04:16 Alkaline Phosphatase 33 IU/L (42-121) L 09/06/17 04:16 Troponin I < 0.03 ng/mL (<0.03) 09/05/17 12:05 B-Natriuretic Peptide 129 pg/ml (<=100) H 09/05/17 02:30 Triglycerides 83 mg/dL (35-160) 09/05/17 09:20 Cholesterol 157 mg/dL (<200) 09/05/17 09:20 HDL Cholesterol 46 mg/dL (29-89) 09/05/17 09:20 Cholesterol/HDL Ratio 3.41 09/05/17 09:20 Lipase 16 U/L (22-51) L 09/05/17 02:30 Home Medications: Aspirin [Aspir-Low] 1 pill PO DAILY 09/05/17 Pyridoxine HCl [Vitamin B-6] 1 pill PO DAILY 09/05/17 Atorvastatin Calcium [Lipitor] 40 mg PO BEDTIME #30 tab 09/06/17 Clopidogrel Bisulfate [Plavix*] 75 mg PO DAILY #30 tablet 09/06/17 Folic Acid 1 mg PO DAILY #30 tablet 09/06/17 Metoprolol Tartrate 1 pill PO DAILY #30 tablet 09/06/17 Valsartan [Diovan*] 160 mg PO BID #60 tab 09/06/17 New Medications: Atorvastatin Calcium [Lipitor] 40 mg PO BEDTIME #30 tab Clopidogrel Bisulfate [Plavix*] 75 mg PO DAILY #30 tablet Folic Acid 1 mg PO DAILY #30 tablet Metoprolol Tartrate 1 pill PO DAILY #30 tablet Valsartan [Diovan*] 160 mg PO BID #60 tab Patient Discharge Instructions: 1. Patient will need a follow up with her PCP in 1 week to follow up this hospitalization. 2. Patient presented with dizziness, nausea. Patient found to have acute CVA to the left cerebellar vermis. MRI also showed previous left frontal lobe CVA. Patient did not require inpatient rehab or skilled placement. At discharge she will continue with physical therapy as an outpatient. Fall precautions addressed in detail. Medications have been adjusted. At discharge she will continue with aspirin 81 mg daily. New medications include Plavix 75 mg 1 pill daily, folic acid 1 mg daily and Lipitor 40 mg once daily. Recommendation is for the patient to follow up with her PCP in 1-2 weeks to follow up this hospitalization and continue her care. Recommendations for the patient follow up with neurology in 1 week to establish care and monitor. 3. Patient has hypertension. Medications have been adjusted. At discharge valsartan/hydrochlorothiazide has been discontinued. New medication valsartan 160 mg 1 pill twice daily has been started. At discharge she will continue with valsartan 160 mg 1 pill twice daily and metoprolol 100 mg daily. Recommendation is to maintain blood pressures less 150/80. Further adjustment can be done by her PCP. 4. Patient has hyperlipidemia. Patient will continue with new medication-Lipitor 40 mg 1 pill once daily. Recommendation is to recheck lab in 1 month to monitor progress. 5. Patient with arthritis. Fall precautions education will be provided. Patient continue with physical therapy as an outpatient. Patient may take Tylenol as needed for pain. Recommendation on no further use of nonsteroidal anti-inflammatories as the patient is taking aspirin and Plavix. 6. Patient has mild renal insufficiency. Recommendation is to recheck lab-BMP in 1 week to monitor progress. Patient now on valsartan. Medications may need to be adjusted if renal insufficiency continues. Diet: AHA Activity: Fall precautions Time spent managing pt's care (in minutes): 55
[2017-09-06 15:27] VITALS: BP 185/82; TEMP 97
--- NOTE | 2017-09-09 09:38 | CON ---
Reason For Consultation: Consultation called by Dr. Pardo and Dr. Soliman for the stroke. History Of Present Illness: Ms. Rader is a 72-year-old patient with history of hypertension, who was well until yesterday evening when she developed while sitting on the toilet nausea, vomiting and brief loss of consciousness. After her symptoms improved, she did not immediately come to the hospital. About 6 hours later when things seemed to worsen, she decided to go to the emergency room. At [facility], her head CT scan was remarkable for a small low-density area in the left cerebellar vermis suspicious for an acute infarct. Subsequent brain MRI showed acute infarct involving the left cerebellar vermis. The patient also had blood work, which showed an LDL of 94 and HDL of 46, and a total cholesterol of 157. Her creatinine was slightly elevated at 1.11 and glucose was normal at 88. Her urinalysis, however, on admission did show a trace of esterase with 3+ protein. The patient reports recovering well with and denies any focal deficits at this point. She is able to ambulate without difficulty. Past Medical History: As indicated above including hypertension, osteoarthritis , and she has had bilateral knee replacement. Medications At Home: Aspirin 81 mg daily, valsartan hydrochlorothiazide 160/25 daily. Family History: Noncontributory. Social History: No tobacco or alcohol use. Allergies: TO TRAMADOL. Review of Systems: She denies any recent fevers, chills, nausea, vomiting, myalgias, arthralgias, headaches, weight change, rash, or psychiatric complaints. Physical Examination: Vital Signs: Blood pressure 150/67, pulse 60, respiratory rate 18, temperature 98.1, oxygen saturation 96% to 98% on room air. Weight 223 pounds, height 5 feet, BMI of 43.6. General: Ms. Rader is sitting at side of her bed. She is in no acute distress. HEENT: She is normocephalic and atraumatic. Sclerae anicteric. Oropharynx is moist and pink. Neck: Supple. Chest: Clear. Heart: Regular. Extremities: Show no edema, cyanosis, or clubbing. Neurological: She is alert and oriented to person, place, and situation. She has no expressive or receptive aphasias. Cranial nerves intact 2 through 12. Motor, she has intact strength, upper and lower extremities proximally and distally. Sensation intact upper lower extremities. Coordination intact in upper and lower extremities. Reflexes unremarkable. Gait, she has good stance and stride. Assessment: Ms. Rader is a 72-year-old patient, admitted to the hospital with a cerebellar vermian stroke from which she is recovering very well. Stroke risk factors include hypertension and dehydration along with morbid obesity. Plan: She is currently on aspirin along with Plavix 75 mg daily. She is on Lipitor 40 mg at bedtime to reduce the LDL to less than 70. She did receive folic acid 1 mg daily, and medications for blood pressure, with a target goal of systolic 120 to 130. After discharge she should follow up with Dr. Bustos's in clinic in 1 month and her primary care physician as scheduled. TRELL Voice ID: [id number] Report ID: [id number] MTDD
== END 2017-09-06 14:50 | disposition home or self-care (01) | DRG 65 ==
LOC: ER 23:04 → ERHOLD 09-05 03:24 → 2ND 09-05 07:49 → OBSVTOIN 09-05 10:50
PROVIDERS: ADMIT Hospitalist; ATTEND Hospitalist
DX: I63.9 Cerebral infarction, unspecified (principal); Z68.41 Body mass index [BMI] 40.0-44.9, adult; I10 Essential (primary) hypertension; R11.2 Nausea with vomiting, unspecified; E66.9 Obesity, unspecified; E78.5 Hyperlipidemia, unspecified; Z96.653 Presence of artificial knee joint, bilateral; M19.90 Unspecified osteoarthritis, unspecified site; N28.9 Disorder of kidney and ureter, unspecified
CPT/HCPCS: 36415; 70450; 70551; 71045; 80048; 80053; 80061; 80076; 81003; 82550; 82553; 83690; 83735; 83880; 84439; 84443; 84484; 85025; 85610; 85730; 87086; 87088; 93005; 93306; 93880; 96361; 96365; 96375; 97163; 99285; J0696; J1650; J2270; J2405; J7030

== ENCOUNTER 2023-03-26 21:18 | Emergency (ER) | payer OTHER ==
[2023-03-26] MEDS ORDERED: PANTOPRAZOLE 40 MG INJ ONE (23:40)
[2023-03-27] LABS: Protime INR 0.92
[2023-03-27 00:01] LABS: Absolute Lymphocytes (CBC) 2.1 K/uL (0.7-4.9); Hematocrit 31.5 % (36.0-45.0); Lymphocytes % 20.9 % (15.3-44.8); MCV 83.8 fL (80-100); MPV 8.6 fL (7.6-11.3); Platelets 225 thou/uL (152-406); RBC Red Blood Cell Count 3.76 M/uL (3.86-4.86)
[2023-03-27 00:15] LABS: ALT/SGPT 14 U/L (13-56); AST/SGOT 8 U/L (15-37); Albumin 3.4 g/dL (3.4-5.0); Alkaline Phosphatase 49 U/L (45-117); BUN Blood Urea Nitrogen 22 mg/dL (7-18); Bicarbonate 24 mEq/L (21-32); Bilirubin Total 0.2 mg/dL (0.2-1.0); Glomerular Filtration Rate 36 ml/min (=/>90); Glucose Level 113 mg/dL (74-106); NT PRO-BNP 265 pg/mL (<450); Potassium 4.7 mEq/L (3.5-5.1); Protein, Total 7.7 g/dL (6.4-8.2); Sodium Level 140 mEq/L (136-145); Troponin High Sensitivity 10.3 pg/mL (<58.9)
[2023-03-27 00:18] LABS: Bilirubin Direct < 0.1 mg/dL (0-0.2); Bilirubin Indirect, Calculated ND mg/dL (0.2-0.8)
--- NOTE | 2023-03-27 00:56 | EDPHYS ---
Physician Documentation [facility] Name: Svetlana Rader Age: 77 yrs Sex: Female : 1945 Arrival Date: 03/26/2023 Time: 21:18 Bed 14 Private MD: ED Physician Maxime Vargas HPI: 03/26 21:19 This 77 yrs old Black Female presents to ER via Unassigned with complaints of Diarrhea, sp4 Rectal Bleeding. 03/27 00:58 Patient is a very pleasant 77-year-old female with history of hypertension and gout. sp4 Patient has history of 2 prior colonoscopies. Patient has history of polyps. Patient presents with acute episode of diarrheal illness associated with some red blood when she cleaned herself in the bathroom at 7 PM today. Patient also reported there was some blood on the toilet. Patient's primary care doctor is Dr. Irvin. Patient is here for evaluation of acute rectal bleeding.. Historical: - Allergies: 03/26 21:29 tramadol; jj7 - PMHx: 21:29 Hypertension; Gout; jj7 - PSHx: 21:29 section; TUBIAL LIGATION; jj7 - Immunization history:: Adult Immunizations up to date. - Social history:: Smoking status: Patient denies any tobacco usage or history of. Patient/guardian denies using alcohol, street drugs. - Family history:: not pertinent. ROS: 03/27 00:58 Constitutional: Negative for fever, chills, and weight loss, Abdomen/GI: Negative for sp4 abdominal pain, nausea, vomiting, positive for diarrhea and positive for episode of anal and rectal bleeding All other systems are negative, Exam: 00:49 Abdomen/GI: Rectal exam: the exam is chaperoned by an ultrasound tech, There is anal skin tag, sp4 no sign of thrombosed or bleeding hemorrhoid, no bleeding, no melena, no maroon stool, no mass, no other significant findings on rectal exam, female transportation driver present. 00:53 ECG was reviewed by the Attending Physician. EKG reveals sinus bradycardia at a rate of sp4 57, EKG time 2252, no ST elevation or depression, no ectopy 00:58 Constitutional: This is a well developed, well nourished patient who is awake, alert, sp4 and in no acute distress. Head/Face: Normocephalic, atraumatic. Eyes: Pupils equal round and reactive to light, extra-ocular motions intact. Lids and lashes normal. Conjunctiva and sclera are not injected. Cornea within normal limits. Periorbital areas with no swelling, redness, or edema. ENT: Nares patent. No nasal discharge, no septal abnormalities noted. Tympanic membranes are normal and external auditory canals are clear. Oropharynx with no redness, swelling, or masses, exudates, or evidence of obstruction, uvula midline. Mucous membranes moist. Neck: Trachea midline, no thyromegaly or masses palpated, and no cervical lymphadenopathy. Supple, full range of motion without nuchal rigidity, or vertebral point tenderness. Chest/axilla: Normal chest wall appearance and motion. Nontender with no deformity. No lesions are appreciated. Cardiovascular: Regular rate and rhythm with a normal S1 and S2. No gallops, murmurs, or rubs. Normal PMI, no JVD. No pulse deficits. Respiratory: Lungs have equal breath sounds bilaterally, clear to auscultation and percussion. No rales, rhonchi or wheezes noted. No increased work of breathing, no retractions or nasal flaring. Abdomen/GI: Soft, non-tender, with normal bowel sounds. No distension or tympany. No guarding or rebound. No evidence of tenderness throughout. Back: No spinal tenderness. No costovertebral tenderness. Skin: Warm, dry with normal turgor. Normal color with no rashes, no lesions, and no evidence of cellulitis. MS/ Extremity: Pulses equal, no cyanosis. Neurovascular intact. Full, normal range of motion. Neuro: Awake and alert, GCS 15, oriented to person, place, time, and situation. Cranial nerves II-XII grossly intact. Motor strength 5/5 in all extremities. Sensory grossly intact. Psych: Awake, alert, with orientation to person, place and time. Behavior, mood, and affect are within normal limits Vital Signs: 03/26 21:24 BP 151 / 62; Pulse 63; Resp 16; Temp 97.7; Pulse Ox 98% ; Weight 104.33 kg; Height 5 jj7 ft. 0 in. ; Pain 0/10; 03/27 01:32 BP 110 / 56; Pulse 58; Resp 15; Pulse Ox 99% on R/A; nw1 03/26 21:24 Body Mass Index 44.92 (104.33 kg, 152.4 cm) j7 03/26 21:24 Pain Scale: Adult [facility] [place] Coma Score: 03/26 23:41 Eye Response: spontaneous(4). Motor Response: obeys commands(6). Verbal Response: nw1 oriented(5). Total: 15. MDM: 21:20 Patient medically screened. sp4 03/27 00:52 Differential diagnosis: Nonspecific abd pain, gastritis, viral gastroenteritis, sp4 gastroenteritis. Data reviewed: vital signs, nurses notes, lab test result(s), EKG. Consideration of Admission/Observation Escalation of care including admission/observation considered. ED course: Patient has no signs of bleeding on rectal exam, no melena, no maroon stool, no signs of hemorrhoids, no sign of colonic bleed. Blood counts are reasonable with hemoglobin 10.4. Patient stable for discharge home with gastroenterology follow-up. . 03/26 21:20 Order name: Basic Metabolic Panel; Complete Time: 00:41 sp4 03/26 21:20 Order name: CBC with Diff; Complete Time: 00:41 sp4 03/26 21:20 Order name: LFT's; Complete Time: 00:41 sp4 03/26 21:20 Order name: NT PRO-BNP; Complete Time: 00:41 sp4 03/26 21:20 Order name: PT-INR; Complete Time: 00:41 sp4 03/26 21:20 Order name: Troponin HS; Complete Time: 00:41 sp4 03/26 21:20 Order name: COVID-19 SARS RT PCR; Complete Time: 00:41 sp4 03/26 21:20 Order name: EKG; Complete Time: 21:20 sp4 03/26 21:20 Order name: EKG - Nurse/Tech; Complete Time: 22:54 sp4 03/26 21:20 Order name: IV Saline Lock; Complete Time: 23:40 sp4 03/26 21:20 Order name: Labs collected and sent; Complete Time: 23:40 sp4 03/26 21:20 Order name: O2 Per Protocol; Complete Time: 23:40 sp4 03/26 21:20 Order name: O2 Sat Monitoring; Complete Time: 23:40 sp4 EC:53 Rate is 57 beats/min. Rhythm is regular, Sinus bradycardia. QRS Christmas is Normal. TN sp4 interval is normal. QRS interval is normal. QT interval is normal. T waves are Normal. No ST changes noted. Clinical impression: Sinus bradycardia and No evidence of ischemia. Interpreted by me. Reviewed by me. Administered Medications: 03/26 23:41 Drug: Pantoprazole IVP 80 mg IVP once Route: IVP; Site: right antecubital; nw1 Disposition Summary: 03/27/23 00:56 Discharge Ordered Notes: Location: Home sp4 Problem: new sp4 Symptoms: have improved sp4 Condition: Stable sp4 Diagnosis - Diarrhea, unspecified sp4 - Episode of rectal or anal bleeding, anal skin tag, acute diarrhea sp4 Followup: sp4 - With: Kevin Juan MD - When: 7 - 10 days - Reason: Recheck today's complaints Discharge Instructions: - Discharge Summary Sheet sp4 - Diarrhea, Adult sp4 Forms: - Patient Portal Instructions sp4 Signatures: Dispatcher [employer] Rajwinder Mendiola RN RN jj7 Maxime Vargas MD MD sp4 Darby Ramirez RN RN nw1 Corrections: (The following items were deleted from the chart) 21:31 21:29 PSHx: Total abdominal hysterectomy; jj7 jj7
--- NOTE | 2023-03-27 00:56 | ER ---
Nurse's Notes [facility] Name: Svetlana Rader Age: 77 yrs Sex: Female : 1945 Arrival Date: 03/26/2023 Time: 21:18 Bed 14 Private MD: Diagnosis: Diarrhea, unspecified;Episode of rectal or anal bleeding, anal skin tag, acute diarrhea Presentation: 03/26 21:24 Chief complaint: Patient states: HAD BM EARLIER AND WHEN SHE WIPED SHE WIPED BRIGHT RED jj7 BLOOD. HAD SEVERAL BM TONIGHT AND STATES SHE HAS BRIGHT RED BLOOD. STATES SHE IS NOT HAVING ANY PAIN AND BM ARE SOFT. Coronavirus screen: At this time, the client does not indicate any symptoms associated with coronavirus-19. Ebola Screen: No symptoms or risks identified at this time. Initial Sepsis Screen: Does the patient meet any 2 criteria? No. Patient's initial sepsis screen is negative. Does the patient have a suspected source of infection? No. Patient's initial sepsis screen is negative. Risk Assessment: Do you want to hurt yourself or someone else? Patient reports no desire to harm self or others. Onset of symptoms was March 26, 2023. 21:24 Method Of Arrival: Ambulatory [facility] 21:24 Acuity: AYAD 3 jj7 Triage Assessment: 21:29 General: Appears in no apparent distress. comfortable, Behavior is calm, cooperative, jj7 appropriate for age. Pain: Denies pain. GI: Reports rectal bleeding, bloody stool. Historical: - Allergies: 21:29 tramadol; jj7 - PMHx: 21:29 Hypertension; Gout; jj7 - PSHx: 21:29 section; TUBIAL LIGATION; jj7 - Immunization history:: Adult Immunizations up to date. - Social history:: Smoking status: Patient denies any tobacco usage or history of. Patient/guardian denies using alcohol, street drugs. - Family history:: not pertinent. Screenin:41 [facility] ED Fall Risk Assessment (Adult) History of falling in the last 3 months, nw1 including since admission No falls in past 3 months (0 pts) Confusion or Disorientation No (0 pts) Intoxicated or Sedated No (0 pts) Impaired Gait No (0 pts) Mobility Assist Device Used No (0 pt) Altered Elimination No (0 pt) Score/Fall Risk Level 0 - 2 = Low Risk Oriented to surroundings, Maintained a safe environment, Educated pt \T\ family on fall prevention, incl call for assistance when getting out of bed, Assessed \T\ reinforced patient's understanding of fall precautions, Provided non-skid footwear, Hourly rounding (assess needs \T\ fall precautionary measures) done, Used ambulatory aids as needed (educated on \T\ assisted with). Abuse screen: Denies threats or abuse. Denies injuries from another. Nutritional screening: No deficits noted. Tuberculosis screening: No symptoms or risk factors identified. Assessment: 23:43 General: Appears uncomfortable, obese, Behavior is agitated, fussy, uncooperative. nw1 Cardiovascular: Reports. Vital Signs: 21:24 BP 151 / 62; Pulse 63; Resp 16; Temp 97.7; Pulse Ox 98% ; Weight 104.33 kg; Height 5 [facility] ft. 0 in. ; Pain 0/10; 03/27 01:32 BP 110 / 56; Pulse 58; Resp 15; Pulse Ox 99% on R/A; nw1 03/26 21:24 Body Mass Index 44.92 (104.33 kg, 152.4 cm) [facility] 03/26 21:24 Pain Scale: Adult [facility] [place] Coma Score: 03/26 23:41 Eye Response: spontaneous(4). Motor Response: obeys commands(6). Verbal Response: nw1 oriented(5). Total: 15. ED Course: 21:19 Patient arrived in ED. j6 21:19 Maxime Vargas MD is Attending Physician. sp4 21:29 Triage completed. jj7 21:29 Arm band placed on right wrist. jj7 23:25 Darby Ramirez, CATHY is Primary Nurse. nw1 23:40 Basic Metabolic Panel Sent. nw1 23:40 CBC with Diff Sent. nw1 23:40 LFT's Sent. nw1 23:40 NT PRO-BNP Sent. nw1 23:40 PT-INR Sent. nw1 23:41 Patient has correct armband on for positive identification. Placed in gown. Bed in low nw1 position. Call light in reach. Side rails up X2. Provided Education on: POC. 23:41 Troponin HS Sent. nw1 23:41 COVID-19 SARS RT PCR Sent. nw1 23:41 No provider procedures requiring assistance completed. Inserted saline lock: 20 gauge nw1 in right antecubital area, using aseptic technique. Blood collected. 03/27 00:55 Kevin Juan MD is Referral Physician. sp4 01:32 IV discontinued, intact, bleeding controlled, No redness/swelling at site. Pressure nw1 dressing applied. Administered Medications: 03/26 23:41 Drug: Pantoprazole IVP 80 mg IVP once Route: IVP; Site: right antecubital; nw1 Medication: 23:41 VIS not applicable for this client. nw1 Outcome: 03/27 00:56 Discharge ordered by . sp4 01:32 Discharged to home ambulatory, with significant other, nw1 01:32 Condition: good 01:32 Discharge instructions given to patient, significant other, Instructed on discharge instructions, Demonstrated understanding of instructions, 01:34 Patient left the ED. nw1 Signatures: Nettie Tate jj6 Rajwinder Blanchard RN RN jMaxime Milligan MD MD sp4 Darby Ramirez RN RN nw1 Corrections: (The following items were deleted from the chart) 03/26 21:31 21:29 PSHx: Total abdominal hysterectomy; jj7 jj7
[2023-03-27 01:45] VITALS: TEMP 97.7
[2023-03-27 01:46] VITALS: BP 110/56; O2SAT 99
--- NOTE | 2023-03-28 09:51 | EKG ---
Test Date: 2023-03-26 Test Time: 22:52:26 Anode Builder: MALDONADO MEASUREMENT RESULTS: Intervals: Rate: 57 VT: 166 QRSD: 90 QT: 442 QTc: 430 [place]: P: 39 VT: 166 QRS: 5 T: 25 INTERPRETIVE STATEMENTS: Sinus bradycardia Cannot rule out Anterior infarct, age undetermined Abnormal ECG Compared to ECG 09/05/2017 02:35:44 Myocardial infarct finding now present Electronically Signed On 03-28-23 09:46:49 CDT by Randy Sharif
== END 2023-03-27 01:34 | disposition home or self-care (01) ==
LOC: ER 21:18
DX: R19.7 Diarrhea, unspecified (principal); K62.5 Hemorrhage of anus and rectum; L91.8 Other hypertrophic disorders of the skin; Z88.5 Allergy status to narcotic agent; Z11.52 Encounter for screening for COVID-19
CPT/HCPCS: 93005; 85025; 80048; 36415; 85610; 80076; 84484; 83880; 87635; 96374; 99284; C9113

== ENCOUNTER 2024-02-21 11:06 | Inpatient (IN) | payer OTHER ==
--- NOTE | 2024-02-21 11:37 | RAD REPORT ---
EXAMINATION: ONE VIEW CHEST XR CLINICAL INDICATION: Female, 78 years old.,near syncope TECHNIQUE: Frontal chest projection is submitted. Examination is limited by patient positioning and t echnique. COMPARISON: 09/05/2017 FINDINGS: The lungs are well inflated and clear apart from minimal bilateral dependent atelectatic changes. No pneumothorax or sizable effusion. The heart is normal in size. IMPRESSION: No acute intrathoracic abnormalities.
[2024-02-21 11:44] LABS: Absolute Basophils 0.1 K/uL (0-0.5); Absolute Eosinophils 0.2 K/uL (0-0.5); Absolute Lymphocytes (CBC) 1.2 K/uL (0.7-4.9); Absolute Monocytes 0.5 K/uL (0.1-1.3); Absolute Neutrophil 5.3 K/uL (1.8-8.0); Basophils % 1.4 % (0-1.3); Eosinophils % 2.5 % (0-4.4); Hemoglobin 10.8 g/dL (12.0-15.0); Lymphocytes % 16.7 % (15.3-44.8); MCH 27.1 pg (27.0-35.0); MCHC 31.8 g/dL (32.0-36.0); MCV 85.3 fL (80-100); MPV 8.5 fL (7.6-11.3); Monocytes % 6.4 % (3.3-12.3); Platelets 230 thou/uL (152-406); RBC Red Blood Cell Count 3.98 M/uL (3.86-4.86); Red Cell Distribution Width 16.4 % (12.1-15.2)
[2024-02-21 12:03] LABS: Albumin 3.5 g/dL (3.4-5.0); Albumin/Globulin Ratio 0.8 (1.1-1.8); Alkaline Phosphatase 42 U/L (45-117); Anion Gap 9.9 mEq/L (5.0-15.0); BUN Blood Urea Nitrogen 32 mg/dL (7-18); Bicarbonate 22 mEq/L (21-32); Bilirubin Total 0.3 mg/dL (0.2-1.0); Globulin 4.2 g/dL (2.3-3.5); Glomerular Filtration Rate 30 ml/min (=/>90); Glucose Level 116 mg/dL (74-106); Magnesium 2.2 mg/dL (1.6-2.4); Potassium 4.9 mEq/L (3.5-5.1); Protein, Total 7.7 g/dL (6.4-8.2); Sodium Level 140 mEq/L (136-145); Troponin High Sensitivity 8.3 pg/mL (<58.9)
[2024-02-21 12:04] LABS: ALT/SGPT < 14 U/L (13-56); AST/SGOT < 10 U/L (15-37); Bilirubin Direct < 0.2 mg/dL (0-0.2); Bilirubin Indirect, Calculated 0.1 mg/dL (0.2-0.8)
[2024-02-21] MEDS ORDERED: ASPIRIN EC 325 MG TABLET PO ONE (12:32)
--- NOTE | 2024-02-21 13:17 | RAD REPORT ---
EXAM: CT brain without contrast HISTORY: Syncope COMPARISON: 2018 TECHNIQUE: Multiple contiguous axial images were obtained and a CT of the brain without contrast. Sagittal and coronal reformats were performed. Automated exposure control, adjustment of the mA and/or kV according to patient size, and/or itera tive reconstruction. 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 Vague small low-density left cerebellum. No fluid within the visualized sinuses or mastoids noted. 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 Subtle low-density left cerebellum equivocal for acute infarction. MRI brain without contrast would b e helpful for further evaluation
--- NOTE | 2024-02-21 13:22 | ER ---
Nurse's Notes [facility] Name: Svetlana Rader Age: 78 yrs Sex: Female : 1945 Arrival Date: 02/21/2024 Time: 11:06 Bed 3 Private MD: Diagnosis: Near syncope;Chest pain Presentation: 02/20 11:08 Chief complaint: EMS states: patient was playing dominoes when all of a sudden she tm6 broke into a sweat, felt dizzy, and like she was about to pass out. 11:08 Method Of Arrival: EMS: [facility] tm6 11:08 Initial Sepsis Screen: Does the patient meet any 2 criteria? No. Patient's initial tm6 sepsis screen is negative. Does the patient have a suspected source of infection? No. Patient's initial sepsis screen is negative. Risk Assessment: Do you want to hurt yourself or someone else? Patient reports no desire to harm self or others. Onset of symptoms was February 21, 2024. 11:08 Acuity: AYAD 3 tm6 11:38 Coronavirus screen: Vaccine status: Patient reports receiving the 2nd dose of the covid tm6 vaccine. Ebola Screen: Patient negative for fever greater than or equal to 101.5 degrees Fahrenheit, and additional compatible Ebola Virus Disease symptoms Patient denies exposure to infectious person. Patient denies travel to an Ebola-affected area in the 21 days before illness onset. No symptoms or risks identified at this time. Triage Assessment: 11:08 General: Appears in no apparent distress. Behavior is calm, cooperative. Pain: Denies tm6 pain. EENT: No signs and/or symptoms were reported regarding the EENT system. Neuro: Level of Consciousness is awake, alert, obeys commands, Oriented to person, place, time, situation, Reports dizziness, near syncope, but now feels better. Cardiovascular: Reports lightheadedness, near syncope, but feels better now Patient's skin is warm and dry. Rhythm is sinus bradycardia. Respiratory: Airway is patent Respiratory effort is even, unlabored, Respiratory pattern is regular, symmetrical. GI: No signs and/or symptoms were reported involving the gastrointestinal system. Abdomen is round non-distended. : No signs and/or symptoms were reported regarding the genitourinary system. Derm: No signs and/or symptoms reported regarding the dermatologic system. Musculoskeletal: No signs and/or symptoms reported regarding the musculoskeletal system. Historical: - Allergies: 11:39 tramadol; tm6 - PMHx: 11:39 Gout; Hypertension; stroke (TUBIAL LIGATION); tm6 - PSHx: 11:39 section; TUBIAL LIGATION; tm6 - Immunization history:: Client reports receiving the 2nd dose of the Covid vaccine. - Infectious Disease History:: Denies. - Family history:: not pertinent. - Social history:: Smoking status: Patient denies any tobacco usage or history of. Patient/guardian denies using alcohol. Screenin:08 [facility] ED Fall Risk Assessment (Adult) History of falling in the last 3 months, tm6 including since admission No falls in past 3 months (0 pts) Confusion or Disorientation No (0 pts) Intoxicated or Sedated No (0 pts) Impaired Gait No (0 pts) Mobility Assist Device Used No (0 pt) Altered Elimination No (0 pt) Score/Fall Risk Level 0 - 2 = Low Risk Oriented to surroundings, Maintained a safe environment, Educated pt \T\ family on fall prevention, incl call for assistance when getting out of bed. Abuse screen: Denies threats or abuse. Denies injuries from another. Nutritional screening: No deficits noted. Tuberculosis screening: No symptoms or risk factors identified. Assessment: 11:08 Reassessment: see triage assessment. tm6 12:40 Reassessment: Patient and/or family updated on plan of care and expected duration. Pain tm6 level reassessed. Patient is alert, oriented x 3, equal unlabored respirations, skin warm/dry/pink. 14:21 Reassessment: Patient and/or family updated on plan of care and expected duration. Pain tm6 level reassessed. Patient is alert, oriented x 3, equal unlabored respirations, skin warm/dry/pink. report faxed to [facility], confirmed by Jolanta Patient states feeling better. 14:51 Reassessment: patient can go up to room as soon as 2D echo is completed. Hall Monitor at tm6 bedside. Vital Signs: 11:08 BP 152 / 61; Pulse 55; Resp 17; Temp 97.7(O); Pulse Ox 100% on R/A; MAP 88 mmHg; Weight tm6 99.79 kg; Height 5 ft. 1 in. ; Pain 0/10; 12:39 BP 145 / 59; Pulse 55; Resp 24; Pulse Ox 100% on R/A; MAP 81 mmHg; Pain 0/10; tm6 14:52 BP 124 / 52; Pulse 57; Resp 16; Temp 97.7; Pulse Ox 96% on R/A; MAP 74 mmHg; Pain 0/10; tm6 11:08 Body Mass Index 41.57 (99.79 kg, 154.94 cm) tm6 11:08 Pain Scale: Adult tm6 12:39 Pain Scale: Adult tm6 14:52 Pain Scale: Adult tm6 ED Course: 11:08 Patient arrived in ED. em1 11:08 Arm band placed on left wrist. tm6 11:08 Patient has correct armband on for positive identification. Bed in low position. Call tm6 light in reach. Side rails up X2. Provided Education on: use of call mike; wait times. Client placed on continuous cardiac and pulse oximetry monitoring. NIBP monitoring applied. nurse monitoring on. Pulse ox on. NIBP on. Door closed. Noise minimized. Warm blanket given. Pillow given. 11:09 Darío Agustin MD is Attending Physician. rt 11:15 EKG done, by ED staff, reviewed by Darío Agustin MD. tm6 11:26 France Carlson, RN is Primary Nurse. tm6 11:32 XRAY Chest (1 view) In Process Unspecified. EDMS 11:38 Basic Metabolic Panel Sent. tm6 11:38 CBC with Diff Sent. tm6 11:38 LFT's Sent. tm6 11:38 Magnesium Sent. tm6 11:38 Troponin HS Sent. tm6 11:38 Inserted saline lock: 22 gauge in right antecubital area, using aseptic technique. tm6 Blood collected. Flushed with 10 mL NS. Patient maintains SpO2 saturation greater than 95% on room air. 11:39 Triage completed. tm6 13:06 Head Brain Wo Cont In Process Unspecified. EDMS 13:21 Brook Ayon MD is Hospitalizing Provider. rt 13:23 Carotid Artery Bilateral US In Process Unspecified. EDMS 14:23 423 CM met with Mrs. Rader and her daughter Rebeca at the bedside in the ED exam room. ane Patient identified by name and . Demographic sheet confirmed and changes sent to appropriate personnel. states she lives alone in a ground floor apartment. She reports that prior to admission, she performs ADLs independently. No DME, no HH, no home oxygen or other medical services at this time. No MPOA in place at this time. Mrs. Rader states her preferred plan is to return home and Rebeca states her or her sister Calista can transport her home upon discharge. CM team will continue to follow and coordinate care during this hospital stay. Administered Medications: 12:38 Drug: Aspirin PO 325 mg PO once Route: PO; tm6 14:52 Follow up: Response: No adverse reaction tm6 Medication: 11:08 VIS not applicable for this client. tm6 Outcome: 13:22 Decision to Hospitalize by Provider. rt 15:24 Patient left the ED. rs5 Signatures: Dispatcher [employer] EDMS Jerod Fonseca em1 Darío Agustin MD MD rt Macario Gracia RN RN rs5 France Carlson RN RN tm6 Shahrzad Martinez RN RN alyse
--- NOTE | 2024-02-21 13:23 | EDPHYS ---
Physician Documentation [facility] Name: Svetlana Rader Age: 78 yrs Sex: Female : 1945 Arrival Date: 02/21/2024 Time: 11:06 Bed 3 Private MD: ED Physician Darío Agustin HPI: 02/20 11:23 This 78 yrs old Black Female presents to ER via Unassigned with complaints of near rt syncope. 11:23 Patient presents to the ED with near syncope starting prior to arrival. Patient states rt that she was lightheaded, states that she was sweating at that time. Reports that this episode lasted maybe 10 minutes. States that she is back to baseline, has no symptoms currently. Denies other acute complaints at this time, symptoms are moderate in severity, no other aggravating or alleviating factors.. Historical: - Allergies: 11:39 tramadol; tm6 - PMHx: 11:39 Gout; Hypertension; stroke (TUBIAL LIGATION); tm6 - PSHx: 11:39 section; TUBIAL LIGATION; tm6 - Immunization history:: Client reports receiving the 2nd dose of the Covid vaccine. - Infectious Disease History:: Denies. - Family history:: not pertinent. - Social history:: Smoking status: Patient denies any tobacco usage or history of. Patient/guardian denies using alcohol. ROS: 11:23 Constitutional: Negative for fever, chills, and weight loss, Cardiovascular: Negative rt for chest pain, palpitations, and edema, Respiratory: Negative for shortness of breath, cough, wheezing, and pleuritic chest pain, Abdomen/GI: Negative for abdominal pain, nausea, vomiting, diarrhea, and constipation, MS/Extremity: Negative for injury and deformity, 11:23 Skin: Positive for diaphoresis, Negative for discoloration, 11:23 Neuro: Positive for near syncope, Negative for syncope, Exam: 11:23 Constitutional: This is a well developed, well nourished patient who is awake, alert, rt and in no acute distress. Head/Face: Normocephalic, atraumatic. Chest/axilla: Normal chest wall appearance and motion. Nontender with no deformity. No lesions are appreciated. Cardiovascular: Regular rate and rhythm with a normal S1 and S2. No gallops, murmurs, or rubs. Normal PMI, no JVD. No pulse deficits. Respiratory: Lungs have equal breath sounds bilaterally, clear to auscultation and percussion. No rales, rhonchi or wheezes noted. No increased work of breathing, no retractions or nasal flaring. Abdomen/GI: Soft, non-tender, with normal bowel sounds. No distension or tympany. No guarding or rebound. No evidence of tenderness throughout. Skin: Warm, dry with normal turgor. Normal color with no rashes, no lesions, and no evidence of cellulitis. MS/ Extremity: Pulses equal, no cyanosis. Neurovascular intact. Full, normal range of motion. Neuro: Awake and alert, GCS 15, oriented to person, place, time, and situation. Cranial nerves II-XII grossly intact. Motor strength 5/5 in all extremities. Sensory grossly intact. Cerebellar exam normal. Normal gait. 11:23 ECG was reviewed by the Attending Physician. Vital Signs: 11:08 BP 152 / 61; Pulse 55; Resp 17; Temp 97.7(O); Pulse Ox 100% on R/A; MAP 88 mmHg; Weight tm6 99.79 kg; Height 5 ft. 1 in. ; Pain 0/10; 12:39 BP 145 / 59; Pulse 55; Resp 24; Pulse Ox 100% on R/A; MAP 81 mmHg; Pain 0/10; tm6 14:52 BP 124 / 52; Pulse 57; Resp 16; Temp 97.7; Pulse Ox 96% on R/A; MAP 74 mmHg; Pain 0/10; tm6 11:08 Body Mass Index 41.57 (99.79 kg, 154.94 cm) tm6 11:08 Pain Scale: Adult tm6 12:39 Pain Scale: Adult tm6 14:52 Pain Scale: Adult tm6 MDM: 11:09 Patient medically screened. rt 14:11 Differential Diagnosis Dysrhythmia, ACS, anemia. Data reviewed: vital signs, nurses rt notes, lab test result(s), EKG, radiologic studies. Consideration of Admission/Observation Patient was admitted/placed on observation. Management of patient was discussed with the following: Hospitalist: Agrees to admit. I considered the following discharge prescriptions or medication management in the emergency department Medications were administered in the Emergency Department. See MAR. Independent interpretation of the following test(s) in the Emergency Department X-Ray: My interpretation is No consolidation seen on interpretation of x-ray images. Care significantly affected by the following chronic conditions: Hypertension. Counseling: I had a detailed discussion with the patient and/or guardian regarding the historical points, exam findings, and any diagnostic results supporting the discharge/admit diagnosis, lab results, radiology results, the need for further work-up and treatment in the hospital. Response to treatment: There is no appreciated change of the patient's symptoms at this time. 02/20 11:09 Order name: Basic Metabolic Panel; Complete Time: 12:06 rt 02/20 11:09 Order name: CBC with Diff; Complete Time: 11:46 rt 02/20 11:09 Order name: LFT's; Complete Time: 12:06 rt 02/20 11:09 Order name: Magnesium; Complete Time: 12:06 rt 02/20 11:09 Order name: Troponin HS; Complete Time: 12:06 rt 02/20 11:09 Order name: XRAY Chest (1 view); Complete Time: 11:46 rt 02/20 12:38 Order name: Carotid Artery Bilateral US; Complete Time: 14:18 snw 02/20 12:43 Order name: Head Brain Wo Cont; Complete Time: 13:21 EDMS 02/20 13:56 Order name: CONS Physician Consult EDMS 02/20 11:09 Order name: Cardiac monitoring; Complete Time: 11:26 rt 02/20 11:09 Order name: EKG - Nurse/Tech; Complete Time: 11:26 rt 02/20 11:09 Order name: IV Saline Lock; Complete Time: 11:38 rt 02/20 11:09 Order name: Labs collected and sent; Complete Time: 11:38 rt 02/20 11:09 Order name: O2 Per Protocol; Complete Time: 11: rt 02/20 11:09 Order name: O2 Sat Monitoring; Complete Time: 11: rt EC:23 Rate is 54 beats/min. Rhythm is regular, Sinus bradycardia with No ectopy. QRS [place] is rt Normal. [place] interval is normal. QRS interval is normal. QT interval is normal. No Q waves. No ST changes noted. Interpreted by me. Administered Medications: 12:38 Drug: Aspirin PO 325 mg PO once Route: PO; tm6 14:52 Follow up: Response: No adverse reaction tm6 Disposition Summary: 02/21/24 13:22 Hospitalization Ordered Notes: Hospitalization Status: Observation rt Provider: Brook Ayon rt Location: Telemetry/MedSurg (observation) rt Condition: Stable rt Problem: new rt Symptoms: have improved rt Bed/Room Type: Standard rt Room Assignment: 220(02/21/24 14:05) em1 Diagnosis - Near syncope rt - Chest pain rt Forms: - Medication Reconciliation Form rt - SBAR form rt - Leadership Thank You Letter rt Signatures: Dispatcher [employer] EDMS Jerod Fonseca em1 Darío Agustin MD MD rt [place] Carlson RN RN tm6 Corrections: (The following items were deleted from the chart) 11:10 11:10 Chest Single View+RAD.RAD.BRZ ordered. EDMS EDMS 12:38 12:38 EC Echo Doppler W/Color Flow+ECHO.RAD.BRZ ordered. EDMS EDMS 12:38 12:38 Carotid Artery Bilateral+US.RAD.BRZ ordered. EDMS EDMS 14:05 13:22 rt em1
--- NOTE | 2024-02-21 13:55 | P.HP ---
Certification for Inpatient Patient admitted to: Inpatient With expected LOS: >2 Midnights Patient will require the following post-hospital care: None Practitioner: I am a practitioner with admitting privileges, knowledge of patient current condition, hospital course, and medical plan of care. Services: Services provided to patient in accordance with Admission requirements found in Title 42 Section 412.3 of the Code of Federal Regulations <Leonila Pendleton - Last Filed: 02/21/24 16:59> Patient History Date of Service: 02/21/24 Reason for admission: Near syncope History of Present Illness: Ms. Rader is a 78-year-old female with a past medical history of hypertension, gout, CKD, and CVA who presented to the emergency department today with complaint of near syncope. Patient was apparently in her normal state of health when she felt slightly dizzy and suddenly had extreme diaphoresis and felt like she was going to pass out. She denies nausea, vomiting, chest pain, or shortness of breath at the time of the episode. Ms. Rader follows up with Dr. Irvin (PCP), Dr. Saenz (nephrology), and Dr. Negrete (cardiology). She is awake, alert, in no distress at bedside. Labs: Troponin negative Mild bump in creatinine 1.73, dip in GFR to 30 EKG: Sinus bradycardia, nonspecific ST-T changes, QTc 419 Chest x-ray: No acute intrathoracic abnormality Carotid Doppler: Mild plaque is present within the carotid arteries. The internal carotid arteries are tortuous. The vertebral arteries demonstrate antegrade flow. No significant vascular abnormalities displayed CT of brain without: Impression old infarctions left frontal lobe and cerebellar vermis. Subtle low- density left cerebellum equivocal for acute infarction. MRI brain without contrast would be helpful for further evaluation. Echo pending: - Past Medical/Surgical History Has patient received pneumonia vaccine in the past: No Diabetic: No -: Hypertension -: Osteoarthritis -: CKD -: Gout -: CVA -: Bilateral knee replacement -: -: Fatty Cyst removed -: Hysterectomy Psychosocial/ Personal History: Patient lives at home - Family History Mother -: Hypertension Father -: Hypertension Brother -: Diabetes Sister -: Diabetes - Social History Smoking Status: Unknown if ever smoked Alcohol use: No CD- Drugs: No Caffeine use: Yes Place of Residence: Home <Leonila Pendleton - Last Filed: 02/21/24 16:59> Date of Service: 02/21/24 <Brook Ayon Ryan - Last Filed: 02/21/24 17:46> Allergies tramadol Allergy (Verified 09/05/17 05:20) Itching/Hives/Rash Home Medications: Aspirin [Aspir-Low] 1 pill PO DAILY 09/05/17 Pyridoxine HCl [Vitamin B-6] 1 pill PO DAILY 09/05/17 Atorvastatin Calcium [Lipitor] 40 mg PO BEDTIME #30 tab 09/06/17 Clopidogrel Bisulfate [Plavix*] 75 mg PO DAILY #30 tablet 09/06/17 Folic Acid 1 mg PO DAILY #30 tablet 09/06/17 Metoprolol Tartrate 1 pill PO DAILY #30 tablet 09/06/17 Valsartan [Diovan*] 160 mg PO BID #60 tab 09/06/17 Review of Systems 10-point ROS is otherwise unremarkable General: As per HPI Eyes: Unremarkable ENT: Unremarkable Respiratory: Unremarkable Cardiovascular: Unremarkable Gastrointestinal: Unremarkable Genitourinary: Unremarkable Musculoskeletal: Unremarkable Integumentary: As per HPI (Diaphoresis) Neurological: Other (Near syncope), As per HPI <HelderLeonilajuan Lai - Last Filed: 02/21/24 16:59> Physical Examination - Vital Signs Blood Pressure: 124/57 Pulse: 54 Respirations: 18 Pulse Ox (%): 98 - Physical Exam General: Alert, In no apparent distress, Oriented x3 HEENT: Atraumatic, Normocephalic Neck: Supple Respiratory: Clear to auscultation bilaterally, Normal air movement Cardiovascular: Normal pulses, Regular rate/rhythm, Other (Bradycardic) Capillary refill: <2 Seconds Gastrointestinal: Normal bowel sounds, Soft and benign Musculoskeletal: No clubbing, No swelling Integumentary: No rashes Neurological: Normal speech, Normal tone, Normal affect Lymphatics: No axilla or inguinal lymphadenopathy External genitalia: Deferred Rectal: Deferred - Studies Laboratory Data (last 24 hrs) 02/21/24 02/21/24 11:36 11:36 WBC 7.20 Hgb 10.8 L Hct 34.0 L Plt Count 230 Sodium 140 Potassium 4.9 BUN 32 H Creatinine 1.73 H Glucose 116 H Magnesium 2.2 Total Bilirubin 0.3 AST < 10 L ALT < 14 Alkaline Phosphatase 42 L <Leonila Pendletonlen - Last Filed: 02/21/24 16:59> - Studies Laboratory Data (last 24 hrs) 02/21/24 02/21/24 11:36 11:36 WBC 7.20 Hgb 10.8 L Hct 34.0 L Plt Count 230 Sodium 140 Potassium 4.9 BUN 32 H Creatinine 1.73 H Glucose 116 H Magnesium 2.2 Total Bilirubin 0.3 AST < 10 L ALT < 14 Alkaline Phosphatase 42 L <Brook Ayon Ryan - Last Filed: 02/21/24 17:46> Assessment and Plan - Plan Near syncope with soft blood pressure and bradycardia Hypertension with history of CVA CKD with chronic diuretic use Acute cerebellar CVA Monitor and trend blood pressure, hold antihypertensives for systolic blood pressure less than 130, heart rate less than 60. Patient takes metoprolol 100 mg p.o. every morning, if parameters met will change to 50 mg p.o. twice daily Hold HCTZ and spironolactone Gentle hydration Serial troponins and EKG Appreciate consultation from cardiology Echocardiogram if cardiology is agreeable Antiplatelet therapy, anticoagulation, beta-jada, statin, and O2 as needed Folic acid Stat MRI brain without contrast Consult Dr. Bustos Consult PT Bedside swallow I&O Daily weight VTE/GI prophylaxis Discharge Plan: Home Plan to discharge in: 48 Hours - Advance Directives Does patient have a Living Will: No Does patient have a Durable POA for Healthcare: No - Code Status/Comfort Care Code Status Assessed: Yes <Leonila Pendletonlen - Last Filed: 02/21/24 16:59> - Plan Pt seen and examined. I agree with the note by the PRINTING PRESSMAN. Pt is a 78 yo female with past medical history of gout, Htn and CVA who presents with near syncope. Pt reports feeling lightheaded and diaphoretic at home. It lasted for 10 minutes and pt came to the ER for evaluation. On admission, lab studies show wbc 7.2, Hgb 10.2, K 4.9, Cr 1.73. CT head shows subtle low density left cerebellar lesion that is concerning for acute infarction. At bedside, pt is in NAD. A/P: Near syncope: Will f/u orthostatic vital sign, Echo and carotid ultrasound. CT head shows subtle low density left cerebellar lesion that is concerning for acute infarction. It is likely old infarction. Will f/u MRI brain. ECHO shows EF 60 - 65% and Carotid ultrasound is unremarkable. Consulted Cardiology. ADEEL: cr is 1.73. Will avoid nephrotoxins, continue IVF and monitor renal functio n. Htn: Continue home med Hx of CVA: continue home med. DVT ppx: SCD Code: full <Brook Ayon - Last Filed: 02/21/24 17:46>
--- NOTE | 2024-02-21 14:16 | RAD REPORT ---
EXAMINATION: US CAROTID DUPLEX CLINICAL INDICATION: SYNCOPE. TECHNIQUE: Real-time grayscale, color flow and spectral Doppler sonographic images were obtained of [facility] extracranial carotid system using a linear transducer. COMPARISON: 2017. FINDINGS: The velocity of the right internal carotid artery 118 cm/s. Right ICA/CCA ratio 1.7 The velocity in the left internal carotid artery 82 cm/s. Left ICA/CCA ratio 1.3 Mild plaque is present within the carotid arteries. The internal carotid arteries are tortuous. The vertebral arteries demonstrate anterograde flow IMPRESSION: No significant vascular abnormality is displayed
[2024-02-21] MEDS: NA CHLORIDE 0.9% 1,000 ML IV SCH (15:46)
--- NOTE | 2024-02-21 15:51 | ECHO ---
HEIGHT: 5 ft 1 in WEIGHT: 219 lb oz DATE OF STUDY: 02/21/[address]: Darío Agustin 2-DIMENSIONAL: YES M.MODE: YES DOPPLER: YES COLOR FLOW: YES TDS: NO PORTABLE: YES DEFINITY: NO BUBBLE STUDY: NO DIAGNOSIS: NEAR SYNCOPE, BRADYCARDIA CARDIAC HISTORY: CATHERIZATION: NO SURGERY: NO PROSTHETIC VALVE: NO PACEMAKER: NO MEASUREMENTS (cm) DIASTOLIC (NORMALS) SYSTOLIC (NORMALS) IVSd 1.1 (0.6-1.2) LA Diam 2.4 (1.9-4.0) LVEF 68% LVIDd 4.6 (3.5-5.7) LVIDs 2.9 (2.0-3.5) %FS 38% LVPWd 1.1 (0.6-1.2) Ao Diam 2.6 (2.0-3.7) 2 DIMENSIONAL ASSESSMENT: RIGHT ATRIUM: NORMAL LEFT ATRIUM: NORMAL RIGHT VENTRICLE: NORMAL LEFT VENTRICLE: NORMAL TRICUSPID VALVE: MILD TRICUSPID REGURGITATION MITRAL VALVE: NORMAL PULMONIC VALVE: NORMAL AORTIC VALVE: NORMAL PERICARDIAL EFFUSION: NONE AORTIC ROOT: NORMAL LEFT VENTRICULAR WALL MOTION: NORMAL. DOPPLER/COLOR FLOW: NORMAL. COMMENTS: 1. NORMAL LEFT VENTRICULAR SYSTOLIC FUNCTION. LEFT VENTRICULAR EJECTION FRACTION 60-65%. NORMAL WALL MOTION. 2. NORMAL DIASTOLIC FUNCTION. 3. MILD TRICUSPID REGURGITATION. TECHNOLOGIST: ALAINA ORTA
[2024-02-21 16:01] VITALS: O2SAT 96
--- NOTE | 2024-02-21 16:40 | RAD REPORT ---
EXAMINATION: MRI BRAIN WITHOUT CONTRAST CLINICAL INDICATION: Syncope TECHNIQUE: Multiplanar multisequence MR images of the brain were obtained without intravenous contras t. Unless otherwise specified, incidental findings do not require dedicated imaging follow-up. COMPARISON: Head CT February 21, 2024 FINDINGS: Abnormal signal left frontal lobe, cerebellar vermis and left cerebellar hemisphere all having the ap pearance of old infarct. Diffusion weighted/ADC mapping does not reveal evidence of acute infarct. Mild to moderate signal periventricular, deep and subcortical white matter ischemic changes secondary to small vessel. The ventricles are normal caliber. No extra-axial seen fluid collection Fluid within the sinuses/mastoids not. IMPRESSION: No acute intracranial abnormality noted
--- NOTE | 2024-02-21 16:54 | P.CNS ---
Date of Consult: 02/21/24 Chief Complaint: Near syncope History of Present Illness: Patient with PMH of CVA, HTN, CKD presented with near syncope, felt lightheaded, sweating while she was sitting down, denies chest pain, no SOB, no palpitations, no full syncope. Allergies tramadol Allergy (Verified 09/05/17 05:20) Itching/Hives/Rash Home medications list reviewed: Yes Home Medications: RX: Aspirin [Aspir-Low] 1 pill PO DAILY 09/05/17 RX: Pyridoxine HCl [Vitamin B-6] 1 pill PO DAILY 09/05/17 RX: Atorvastatin Calcium [Lipitor] 40 mg PO BEDTIME #30 tab 09/06/17 RX: Clopidogrel Bisulfate [Plavix*] 75 mg PO DAILY #30 tablet 09/06/17 RX: Folic Acid 1 mg PO DAILY #30 tablet 09/06/17 RX: Metoprolol Tartrate 1 pill PO DAILY #30 tablet 09/06/17 RX: Valsartan [Diovan*] 160 mg PO BID #60 tab 09/06/17 - Past Medical/Surgical History Diabetic: No -: Hypertension -: Osteoarthritis -: CKD -: Gout -: CVA -: Bilateral knee replacement -: -: Fatty Cyst removed -: Hysterectomy Psychosocial/ Personal History: Patient lives at home - Family History Mother Medical History: Hypertension Father Medical History: Hypertension Brother Medical History: Diabetes Sister Medical History: Diabetes - Social History Alcohol use: No CD- Drugs: No Caffeine use: Yes Place of Residence: Home Review of Systems 10-point ROS is otherwise unremarkable Physical Examination Temp Pulse Resp BP Pulse Ox 97.7 F 57 16 124/52 L 98 02/21/24 15:59 02/21/24 15:59 02/21/24 15:59 02/21/24 15:59 02/21/24 15:40 General: Alert, In no apparent distress HEENT: Atraumatic, PERRLA, Mucous membr. moist/pink, EOMI, Sclerae nonicteric Neck: Supple, 2+ carotid pulse no bruit, No LAD, Without JVD or thyroid abnormality Respiratory: Clear to auscultation bilaterally, Normal air movement Cardiovascular: Regular rate/rhythm, Normal S1 S2 Gastrointestinal: Normal bowel sounds, No tenderness Musculoskeletal: No tenderness Integumentary: No rashes Neurological: Normal gait, Normal speech, Normal tone, Normal affect Lymphatics: No axilla or inguinal lymphadenopathy Laboratory Data (last 24 hrs) 02/21/24 02/21/24 11:36 11:36 WBC 7.20 Hgb 10.8 L Hct 34.0 L Plt Count 230 Sodium 140 Potassium 4.9 BUN 32 H Creatinine 1.73 H Glucose 116 H Magnesium 2.2 Total Bilirubin 0.3 AST < 10 L ALT < 14 Alkaline Phosphatase 42 L - Problems (1) Near syncope Onset Date: 09/05/17 Current Visit: No Status: Acute Plan: Monitor on tele continue to trend cardiac enzymes for 3 sets. Echo is normal Gentle hydration Hold BB and continue to monitor BP (2) Hypertension Onset Date: 09/05/17 Current Visit: No Status: Chronic Plan: Hold BB due to bradycardia, continue amlodipine and Diovan. Qualifiers: Hypertension type: essential hypertension Qualified Code(s): I10 - Essential (primary) hypertension (3) Hyperlipidemia Onset Date: 09/05/17 Current Visit: No Status: Suspected Plan: continue lipitor 40 mg daily
[2024-02-21 17:08] VITALS: BMI 41.5
[2024-02-21] MEDS: ATORVASTATIN 40 MG TAB PO SCH (21:23)
[2024-02-21] MEDS: METOPROLOL TAR 50 MG TAB PO SCH (21:23)
[2024-02-22 06:01] LABS: Absolute Basophils 0.1 K/uL (0-0.5); Absolute Eosinophils 0.2 K/uL (0-0.5); Absolute Monocytes 0.8 K/uL (0.1-1.3); Absolute Neutrophil 5.6 K/uL (1.8-8.0); Basophils % 0.9 % (0-1.3); Eosinophils % 2.7 % (0-4.4); Hematocrit 29.3 % (36.0-45.0); Hemoglobin 9.6 g/dL (12.0-15.0); Lymphocytes % 22.7 % (15.3-44.8); MCH 27.9 pg (27.0-35.0); MCHC 32.9 g/dL (32.0-36.0); MCV 84.9 fL (80-100); MPV 8.6 fL (7.6-11.3); Neutrophils % 64.7 % (41.7-73.7); Nucleated Red Blood Cells % 0.1 % (0-0); Platelets 217 thou/uL (152-406); RBC Red Blood Cell Count 3.45 M/uL (3.86-4.86); Red Cell Distribution Width 16.4 % (12.1-15.2)
[2024-02-22 06:17] LABS: Albumin/Globulin Ratio 0.8 (1.1-1.8); Alkaline Phosphatase 37 U/L (45-117); Anion Gap 10.1 mEq/L (5.0-15.0); BUN Blood Urea Nitrogen 29 mg/dL (7-18); Bicarbonate 23 mEq/L (21-32); Bilirubin Total 0.2 mg/dL (0.2-1.0); Globulin 3.7 g/dL (2.3-3.5); Glomerular Filtration Rate 31 ml/min (=/>90); Glucose Level 95 mg/dL (74-106); HDL Cholesterol 42 mg/dL (40-60); LDL Cholesterol, Calculated 40 mg/dL (<130); LDL Cholesterol,Calc NonReport 40; Magnesium 2.2 mg/dL (1.6-2.4); Phosphorus 3.8 mg/dL (2.5-4.9); Potassium 5.1 mEq/L (3.5-5.1); Protein, Total 6.7 g/dL (6.4-8.2); Sodium Level 143 mEq/L (136-145); Troponin High Sensitivity 11.7 pg/mL (<58.9); Uric Acid 6.8 mg/dL (2.6-6.0)
[2024-02-22 06:19] LABS: ALT/SGPT < 14 U/L (13-56); AST/SGOT < 10 U/L (15-37)
[2024-02-22] MEDS: SPIRONOLACTONE 25 MG TABLET PO SCH (08:43)
[2024-02-22] MEDS: TELMISARTAN 80 MG PO SCH (08:44)
[2024-02-22] MEDS: hydroCHLOROthiazide 12.5 MG CAP PO SCH (08:44)
[2024-02-22] MEDS ORDERED: HOME MED 1 EA UNK (Hydrochlorothiazide [Hydrochlorothiazide] 12.5 MG Tablet) PO SCH (09:00)
[2024-02-22] MEDS ORDERED: AMLODIPINE 10 MG TAB PO SCH (09:00)
[2024-02-22] MEDS ORDERED: CLOPIDOGREL 75 MG TABLET PO SCH (09:00)
[2024-02-22] MEDS: CLOPIDOGREL 75 MG TABLET PO SCH (09:02)
[2024-02-22] MEDS: ASPIRIN EC 81 MG TAB PO SCH (09:02)
[2024-02-22] MEDS: FOLIC ACID 1 MG TABLET PO SCH (09:02)
[2024-02-22] MEDS: VALSARTAN 80 MG TAB PO SCH (09:03)
[2024-02-22] MEDS: AMLODIPINE 10 MG TAB PO SCH (09:03)
--- NOTE | 2024-02-22 11:37 | P.DS ---
Admission Date: 02/21/24 Discharge Date: 02/22/24 Disposition: ROUTINE DISCHARGE Discharge Condition: GOOD Reason for Admission: Near syncope Brief History of Present Illness: Ms. Rader is a 78-year-old female with a past medical history of hypertension, gout, CKD, and CVA who presented to the emergency department today with complaint of near syncope. Patient was apparently in her normal state of health when she felt slightly dizzy and suddenly had extreme diaphoresis and felt like she was going to pass out. She denies nausea, vomiting, chest pain, or shortness of breath at the time of the episode. Ms. Rader follows up with Dr. Irvin (PCP), Dr. Saenz (nephrology), and Dr. Negrete (cardiology). She is awake, alert, in no distress at bedside. Hospital Course: Pt is a 78 yo female with past medical history of gout, Htn and CVA who presented with near syncope. Pt felt lightheaded and diaphoretic at home. It lasted for 10 minutes and pt came to the ER for evaluation. On admission, lab studies showed wbc 7.2, Hgb 10.2, K 4.9, Cr 1.73. CT head showed subtle low density left cerebellar lesion that was concerning for acute infarction. We admitted pt for near syncope and followed up syncope work up. Echo and carotid ultrasound were unremarkable. MRI brain was negative for acute abnormality. ADEEL on CKD improved with hydration. We advised pt to stop metoprolol due to bradycardia. It is likely the near syncope was due to bradycardia. We gave lokelma for hyperkalemia. Pt was in NAD prior to discharge. Vital Signs/Physical Exam: Temp Pulse Resp BP Pulse Ox 97.3 F 59 16 156/79 H 97 02/22/24 08:00 02/22/24 09:03 02/22/24 08:00 02/22/24 09:03 02/22/24 08:00 Laboratory Data at Discharge: WBC 8.70 thou/uL (4.3-10.9) 02/22/24 05:26 Hgb 9.6 g/dL (12.0-15.0) L D 02/22/24 05:26 Hct 29.3 % (36.0-45.0) L 02/22/24 05:26 Plt Count 217 thou/uL (152-406) 02/22/24 05:26 Sodium 143 mEq/L (136-145) 02/22/24 05:26 Potassium 5.1 mEq/L (3.5-5.1) 02/22/24 05:26 BUN 29 mg/dL (7-18) H 02/22/24 05:26 Creatinine 1.68 mg/dL (0.55-1.02) H 02/22/24 05:26 Glucose 95 mg/dL (74-106) 02/22/24 05:26 Uric Acid 6.8 mg/dL (2.6-6.0) H 02/22/24 05:26 Phosphorus 3.8 mg/dL (2.5-4.9) 02/22/24 05:26 Magnesium 2.2 mg/dL (1.6-2.4) 02/22/24 05:26 Total Bilirubin 0.2 mg/dL (0.2-1.0) 02/22/24 05:26 AST < 10 U/L (15-37) L 02/22/24 05:26 ALT < 14 U/L (13-56) 02/22/24 05:26 Alkaline Phosphatase 37 U/L (45-117) L 02/22/24 05:26 Triglycerides 62 mg/dL (<150) 02/22/24 05:26 Cholesterol 94 mg/dL (<200) 02/22/24 05:26 HDL Cholesterol 42 mg/dL (40-60) 02/22/24 05:26 Cholesterol/HDL Ratio 2.24 02/22/24 05:26 Home Medications: Atorvastatin Calcium [Lipitor] 40 mg PO BEDTIME #30 tab 09/06/17 Clopidogrel Bisulfate [Plavix*] 75 mg PO DAILY #30 tablet 09/06/17 Amlodipine [Norvasc*] 10 mg PO DAILY 02/21/24 Spironolactone 25 mg PO DAILY 02/21/24 Telmisartan 80 mg PO DAILY 02/21/24 hydroCHLOROthiazide [Hydrochlorothiazide] 12.5 mg PO DAILY 02/21/24 Diet: AHA Activity: Ad nathanael Followup: Talya Irvin DO [Primary Care Provider] -
[2024-02-22] MEDS: SODIUM ZIRCONIUM CYCLOSILICATE 10 GM/PKT PO ONE (12:20)
[2024-02-22 12:42] VITALS: BP 138/73; TEMP 97
[2024-02-22] MEDS ORDERED: ATORVASTATIN 40 MG TAB PO SCH (21:00)
--- NOTE | 2024-02-24 10:25 | EKG ---
Test Date: 2024-02-21 Test Time: 11:13:55 Horn Player: FALGUNI MEASUREMENT RESULTS: Intervals: Rate: 54 NM: 186 QRSD: 90 QT: 442 QTc: 419 Collins: P: 33 NM: 186 QRS: -15 T: 0 INTERPRETIVE STATEMENTS: Sinus bradycardia Cannot rule out Anterior infarct, age undetermined Abnormal ECG Compared to ECG 03/26/2023 22:52:26 No significant changes Electronically Signed On 02-24-24 10:21:15 CDT by Clay Senior
== END 2024-02-22 13:01 | disposition home or self-care (01) | DRG 309 ==
LOC: ER 11:06 → ERHOLD 13:52 → 2ND 14:38
PROVIDERS: ADMIT Hospitalist; ATTEND Hospitalist
DX: R00.1 Bradycardia, unspecified (principal); N17.9 Acute kidney failure, unspecified; M10.9 Gout, unspecified; N18.9 Chronic kidney disease, unspecified; I12.9 Hypertensive chronic kidney disease with stage 1 through stage 4 chronic kidney disease, or unspecified chronic kidney disease; E78.5 Hyperlipidemia, unspecified; E87.5 Hyperkalemia; M19.90 Unspecified osteoarthritis, unspecified site; Z88.5 Allergy status to narcotic agent; Z98.51 Tubal ligation status; Z79.82 Long term (current) use of aspirin; Z79.02 Long term (current) use of antithrombotics/antiplatelets; Z86.73 Personal history of transient ischemic attack (TIA), and cerebral infarction without residual deficits; Z79.899 Other long term (current) drug therapy; Z96.653 Presence of artificial knee joint, bilateral; Z90.710 Acquired absence of both cervix and uterus
CPT/HCPCS: 36415; 70450; 70551; 71045; 80048; 80053; 80061; 80076; 83735; 84100; 84484; 84550; 85025; 93005; 93306; 93880; 97116; 97161; 97530; 99284; G0378; J7030

== ENCOUNTER 2024-03-12 17:02 | Inpatient (IN) | payer OTHER ==
--- OUTSIDE RECORDS SUMMARY | 2024-03-12 17:05 | XMS REPORT | Continuity of Care Document ---
Author Name Unknown Address [address] [facility] [address] [place] [address] [facility] Address [address] [facility] [address] [place] [address] Care Team Providers Care Pharmacy Cashier Name Role Phone PCP, PATIENT DOES NOT HAVE A Primary Care Physic siva Unavailable Benoit Fuller MD Attending Clinician [phone] BENOIT FULLER Attending Clinician Unavailable ANGELA FISH Attending Clinician Unavailable Doctor Unassigned, [place] Attending Clinician U navailable RADIOLOGY Attending Clinician Unavailable Radiology Attending Clinician Unavailable Shan_S_RAYO Attending Clinician Unavailable Ajibade_O_AH Attending Clinician Unavailable Ige-Odunjanie_J_AH Attending Clinician Unavailable BENOIT FULLER Admitting Clinician Unavailable FRIDA ELLIS Admitting Clinician Unavailable Miller_S_RAYO Admitting Clinician Unavailable Ajibade_O_RAYO Admitting Clinician Unavailable Ige-Odunjanie_J_AH Admitting Clinician Unavailable Payers Payer Name Policy Type Policy Number Effective Date Expirati on Date Source [employer] CHOICE [id number] 2023 00:00:00 [facility] [place] [facility]ICARE REPLACEMENT/ADVANT AGE - HMO) [id number] 2019 00:00:00 Problems Condition Name Condition Details Condition Category Status Onset Date Resolution Date Last Treatment Date Treating Clinician Comments Source Primary hypertensi on Primary hypertensi on Disease Active 10-30 00:00: 00 [facility] Morbid obesity Morbid obesity Disease Active 10-30 00:00: 00 [facility] Hyperlipid emia, unspecifie d hyperlipid emia type Hyperlipid emia, unspecifie d hyperlipid emia type Disease Active 10-30 00:00: 00 [facility] Snores Snores Disease Active 10-30 00:00: 00 [facility] Leg edema Leg edema Disease Active 10-30 00:00: 00 [facility] History of arterial ischemic stroke History of arterial ischemic stroke Disease Active 10-30 00:00: 00 [facility] Peripheral vascular disease Peripheral Vascular Disease Problem Active 09-08 00:00: [address] [facility] Folic acid deficiency Folic Acid Deficiency Problem Active 2019-05 00:00: [address] [facility] Vitamin D deficiency Vitamin D Deficiency Problem Active 2019-05 00:00: [address] [facility] Hyperlipid emia Hyperlipid emia Problem Active 2019-05 00:00: [address] [facility] Senile purpura Senile Purpura Problem Active 2019-0516 00:00: [address] [facility] Essential hypertensi on Essential Hypertensi on Problem Active 2019-0516 00:00: [address] [facility] Fibromyalg ia Fibromyalg ia Problem Active 2019-0516 00:00: [address] [facility] History of cerebrovas cular accident History of Cerebrovas cular Accident Problem Active 2019-05 00:00: [address] [facility] Morbid obesity Morbid Obesity Problem Active 2019-0515 00:00: [address] [facility] Osteoarthr itis Osteoarthr itis Problem Active 2019-0515 00:00: [address] [facility] Allergies, Adverse Reactions, Alerts Allergy Name Allergy Type Status Severity Reaction(s) Onset Date Inactive Date Treating Clinician Comments Source NO KNOWN ALLERGIE S Drug Class Active [facility] Tramadol Allergy to substanc e Active [facility] Social History Social Habit Start Date Stop Date Quantity Comments Source [facility] use and exposure 2023-10-31 00:00:00 2023-10-31 00:00:00 Smokeless tobacco non-user [facility] History of Social function 2023-10-31 00:00:00 2023-10-31 00:00:00 [facility] Exposure to SARS-CoV-2 (event) 2022-08-12 00:00:00 2022-08-22 10:12:[address] [facility] Sex assigned at 1945 00:00:00 1945 00:00:00 [facility] Smoking Status Start Date Stop Date Source Tobacco smoking consumption unknown [facility] Never smoked tobacco [facility] Medications Ordered Medication Name Filled Medication Name Start Date Stop Date Current Medication? Ordering Clinician Indication Dosage Frequency Signature (SIG) Comments Components Source telmisartan 80 mg tablet 09-30 00:00: 00 Yes 80mg Take 1 tablet by mouth every morning. [facility] metoprolol succinate XL 100 mg 24 hr tablet 09-29 00:00: 00 Yes 100mg Take 1 tablet by mouth every morning. [facility] amLODIPine 10 mg tablet 09-29 00:00: 00 Yes 10mg Take 1 tablet by mouth every morning. [facility] clopidogreL 75 mg tablet 09-29 00:00: 00 Yes 75mg Take 1 tablet by mouth every morning. [facility] hydroCHLORO thiazide 12.5 mg tablet 09-29 00:00: 00 Yes 12.5mg Take 1 tablet by mouth every morning. [facility] spironolact one 25 mg tablet 09-28 00:00: 00 Yes 25mg Take 1 tablet by mouth in the morning. [facility] atorvastati n 40 mg tablet 09-28 00:00: 00 Yes 40mg Take 1 tablet by mouth every morning. [facility] amlodipine 5 mg tablet TAKE 1 TABLET BY MOUTH EVERY DAY amlodipine 5 mg tablet TAKE 1 TABLET BY MOUTH EVERY DAY No amlodipine 5 mg tablet TAKE 1 TABLET BY MOUTH EVERY DAY [facility] folic acid 1mg qd folic acid 1mg qd No folic acid 1mg qd [facility] folic acid 1 mg tablet TAKE 1 TABLET BY MOUTH EVERY MORNING folic acid 1 mg tablet TAKE 1 TABLET BY MOUTH EVERY MORNING No folic acid 1 mg tablet TAKE 1 TABLET BY MOUTH EVERY MORNING [facility] triamcinolo ne acetonide 0.1 % topical cream Apply 1 application every day by topical route for 28 days. triamcinolo ne acetonide 0.1 % topical cream Apply 1 application every day by topical route for 28 days. No 1applic ation(s ) Q1D triamcinol one acetonide 0.1 % topical cream Apply 1 applicatio n every day by topical route for [address] [facility] vitamin A one tablet daily vitamin A one tablet daily No vitamin A one tablet daily [facility] Vitamin D-3 with Aloe 120 mg-1,000 unit-10 mg tablet Take 1 tablet every day by oral route. Vitamin D-3 with Aloe 120 mg-1,000 unit-10 mg tablet Take 1 tablet every day by oral route. No 1 Q1D Vitamin D-3 with Aloe 120 mg-1,000 unit-10 mg tablet Take 1 tablet every day by oral route. [facility] Vital Signs Vital Name Observation Time Observation Value Comments S ource Systolic blood pressure 2023-10-31 14:33:00 131 mm[Hg] [facility] Diastolic blood pressure 2023-10-31 14:33:00 61 mm[Hg] [facility] Heart rate 2023-10-31 14:33:00 64 /min [facility] Respiratory rate 2023-10-31 14:33:00 20 /min [facility] Body height 2023-10-31 14:33:00 157.5 cm [facility] Body weight 2023-10-31 14:33:00 101.107 kg [facility] BMI 2023-10-31 14:33:00 40.77 kg/m2 [facility] Oxygen saturation in Arterial blood by Pulse oximetry 2023-10-31 14:33:00 95 /min [facility] BP Diastolic 2020-09-08 00:00:00 76 mm[Hg] [facility] Height 2020-09-08 00:00:00 60 [in_i] [facility] BMI (Body Mass Index) 2020-09-08 00:00:00 43 kg/m2 [facility] BP Systolic 2020-09-08 00:00:00 130 mm[Hg] [facility] Body Weight 2020-09-08 00:00:00 220 [lb_av] [facility] Height 2020-03-11 00:00:00 60 [in_i] [facility] BMI (Body Mass Index) 2020-03-11 00:00:00 43 kg/m2 [facility] Body Weight 2020-03-11 00:00:00 220 [lb_av] [facility] Height 2019-12-10 00:00:00 60 [in_i] [facility] BMI (Body Mass Index) 2019-12-10 00:00:00 44.9 kg/m2 [facility] Body Weight 2019-12-10 00:00:00 230 [lb_av] [facility] Procedures Procedure Date / Time Performed Performing Clinician Source TRANSTHORACIC ECHO (TTE) COMPLETE 2023-11-01 19:45:[address] [facility] HB ECG ROUTINE & RHYTHM STRIP 2023-10-31 14:37:[facility]ONSE 2023-08-13 05:01:00 Doctor Unassigned, [place]u [facility] NOTICE OF PRIVACY PRACTICES 2022-08-22 15:09:24 Doctor Unassigned, Neotsu [facility] CONSENT/REFUSAL FOR DIAGNOSIS AND TREATMENT 2022-08-22 15:08:36 Doctor Unassigned, Neotsu [facility] ASSIGNMENT OF BENEFITS 2022-08-22 15:08:16 Docto r Unassigned, Neotsu [facility] Cataract Surgery 2018-12-09 00:00:00 [facility] Total Knee Replacement 2017-12-10 00:00:00 [facility] Total Knee Replacement 2016-12-05 00:00:00 [facility] Hysterectomy 2009-12-05 00:00:00 [facility] Encounters Start Date/Time End Date/Time Encounter Type Admission Type Attending Clinicians Care Facility Care Department Encounter ID Source 2024-02-03 20:00:00 2024-02-03 20:00:00 Outpatient R [facility] [id number] [facility] 2023-11-04 00:00:00 2023-11-04 11:35:07 [facility] [id number] [facility] 2023-11-01 13:55:47 2023-11-01 23:59:00 [facility] [id number] 2023-11-01 13:55:47 2023-11-01 23:59:00 [facility] [id number] [facility] 2023-10-31 09:20:00 2023-10-31 10:04:42 [facility] [id number] 2023-10-31 09:20:00 2023-10-31 10:04:42 Office Visit C[facility] [id number] [facility] 2023-10-28 10:00:00 2023-10-28 10:00:00 [facility] [id number] [facility] 2023-08-13 00:00:00 2023-08-13 00:00:00 Orders Only Doctor Unassigned, [place]otsu [facility] [id number] [facility] 2022-11-28 00:00:00 2022-11-28 00:00:00 Outpatient R RADIOLOGY [facility] [id number] [facility] 2022-08-22 10:13:09 2022-08-22 23:59:00 Outpatient R RADIOLOGY [facility] [id number] [facility] 2022-08-22 10:13:09 2022-08-22 23:59:00 Hospital Encounter Radiology [facility] [id number] [facility] 2020-11-01 11:34:00 2020-11-01 11:34:00 Outpatient Miller_S_AH VFP VFP [id number] [facility] 2020-09-10 06:55:00 2020-09-10 06:55:00 Outpatient Ajibade_O_A H VFP VFP [id number] [facility] 2020-09-09 08:48:00 2020-09-09 08:48:00 Outpatient Ajibade_O_A H VFP VFP [id number] [facility] 2020-09-08 03:36:00 2020-09-08 03:36:00 Outpatient Ajibade_O_A H VFP VFP [id number] [facility] 2020-09-08 00:00:00 2020-09-08 00:00:00 Aftab Cavanaugh, MEAT SALES AND STORAGE MANAGER: [address] [facility], [address], [place] [address] , Ph. VFP [place] - [facility] - [email or web address] [place] [employer] [id number] [facility] 2020-03-15 09:34:00 2020-03-15 09:34:00 Outpatient Ajibade_O_A H VFP VFP [id number] [facility] 2020-03-15 09:34:00 2020-03-15 09:34:00 Outpatient Ajibade_O_A H VFP VFP [id number] [facility] 2020-03-11 11:15:00 2020-03-11 11:15:00 Outpatient Ajibade_O_A H VFP VFP [id number] [facility] 2020-03-11 00:00:00 2020-03-11 00:00:00 Aftab Cavanaugh, MEAT SALES AND STORAGE MANAGER: [address], [address] [id number] , Ph. [facility] - [email or web address] [id number] [facility] 2019-12-14 04:17:00 2019-12-14 04:17:00 Outpatient Ige-Odunuga _J_AH VFP VFP [id number] [facility] 2019-12-10 09:59:00 2019-12-10 09:59:00 Outpatient Ige-Odunuga _J_AH VFP P [id number] [facility] 2019-12-10 00:00:00 2019-12-10 00:00:00 Rowdy Patel, ME[employer] SALES AND STORAGE MANAGER: [address], [facility] [address], [place] [address] , Ph. [facility] - [email or web address] [id number] [facility] 2019-07-15 07:15:00 2019-07-15 07:15:00 Outpatient Ige-Odunuga _J_AH VFP [facility] [id number] [facility] Results Test Description Test Time Test Comments Results Result Co mments Source [facility] Notes Date/Time Note Provider Source 2023-11-04 11:32:34 Spoke with patient. Results of echocardiogram given. All verbally understood. [facility] 2023-11-04 11:30:53 Edwina Amos is a 78 year old female returning call for results- warm transferred to clinic nurse Andreina Glass [facility] 2023-11-04 10:19:19 Images from the original note were not included. Called emergency contact. Updated phone number in [employer]in[employer]. Had 979 area code. Updated to 713. Left vm to call for below results. Benoit Fuller MD P Cardiology Nurse Echocardiogram showed normal ejection fraction. She has pulmonary hypertension. I suspect she has obstructive sleep apnea. Recommend to get sleep study as discussed/requested. T [facility]
[2024-03-12 21:17] LABS: Absolute Basophils 0.1 K/uL (0-0.5); Absolute Eosinophils 0.3 K/uL (0-0.5); Absolute Lymphocytes (CBC) 1.9 K/uL (0.7-4.9); Absolute Monocytes 0.6 K/uL (0.1-1.3); Absolute Neutrophil 5.8 K/uL (1.8-8.0); Basophils % 1.3 % (0-1.3); Eosinophils % 3.3 % (0-4.4); Hematocrit 33.2 % (36.0-45.0); Hemoglobin 10.9 g/dL (12.0-15.0); Lymphocytes % 22.1 % (15.3-44.8); MCH 27.6 pg (27.0-35.0); MCHC 32.7 g/dL (32.0-36.0); MCV 84.2 fL (80-100); MPV 8.3 fL (7.6-11.3); Neutrophils % 66.3 % (41.7-73.7); Platelets 249 thou/uL (152-406); RBC Red Blood Cell Count 3.94 M/uL (3.86-4.86); Red Cell Distribution Width 16.6 % (12.1-15.2)
[2024-03-12 21:33] LABS: Anion Gap 8.7 mEq/L (5.0-15.0); Magnesium 2.3 mg/dL (1.6-2.4); Potassium 5.7 mEq/L (3.5-5.1)
[2024-03-12] MEDS ORDERED: ALBUTEROL 2.5 MG/3 ML NEB SOL ONE (23:13)
[2024-03-12] MEDS ORDERED: SOD POLYSTYREN SUL 15 GM/60 ML UCUP ONE (23:13)
[2024-03-12] MEDS ORDERED: FUROSEMIDE 20 MG/ 2ML VIAL ONE ×2 (23:13→23:36)
[2024-03-12 23:51] LABS: PT Prothrombin Time 10.5 SECONDS (9.4-12.5); PTT, Activated Partial Thromb 34.5 SECONDS (24.3-36.9); Protime INR 0.94
--- NOTE | 2024-03-13 00:28 | EDPHYS ---
Physician Documentation [facility] Name: Svetlana Rader Age: 78 yrs Sex: Female : 1945 Arrival Date: 03/12/2024 Time: 17:02 Bed 16 Private MD: ED Physician Darío Agustin HPI: 03/12 17:37 This 78 yrs old Black Female presents to ER via Unassigned with complaints of Abnormal cp Lab Results. 17:37 Patient is a 78-year-old female who presents to the emergency department after being cp referred by her family physician. Patient reports she had some routine blood work drawn yesterday and received a phone call from her doctor's office saying that her potassium level was elevated. Patient does not express any complaints and otherwise feels fine. Historical: - Allergies: 17:38 tramadol; ph - PMHx: 17:38 Gout; Hypertension; stroke (TUBIAL LIGATION); ph - PSHx: 17:38 section; TUBIAL LIGATION; ph - Immunization history:: Adult Immunizations up to date. - Infectious Disease History:: Denies. - Social history:: Smoking status: Patient denies any tobacco usage or history of. ROS: 17:40 Constitutional: HX per hpi cp 17:40 Constitutional: Negative for body aches, chills, fever, cp 17:40 Cardiovascular: Negative for chest pain, palpitations, 17:40 Respiratory: Negative for cough, shortness of breath, wheezing, 17:40 Abdomen/GI: Negative for abdominal pain, nausea, vomiting, and diarrhea, 17:40 Neuro: Negative for altered mental status, headache, numbness, weakness, 17:40 All other systems are negative, Exam: 17:45 Constitutional: The patient appears in no acute distress, alert, awake, cp non-diaphoretic, non-toxic, well developed, well nourished, 17:45 Head/Face: Normocephalic, atraumatic. cp 17:45 Eyes: Periorbital structures: appear normal, Conjunctiva: normal, no exudate, no injection, Sclera: no appreciated abnormality, Lids and lashes: appear normal, bilaterally, 17:45 ENT: External ear(s): are unremarkable, Nose: is normal, Mouth: Lips: moist, Oral mucosa: moist, Posterior pharynx: Airway: no evidence of obstruction, patent, 17:45 Chest/axilla: Inspection: normal, 17:45 Cardiovascular: Rate: normal, Rhythm: regular, Edema: is not appreciated, JVD: is not appreciated, 17:45 Respiratory: the patient does not display signs of respiratory distress, Respirations: normal, no use of accessory muscles, no retractions, labored breathing, is not present, Breath sounds: are clear throughout, no decreased breath sounds, no stridor, no wheezing, 17:45 Abdomen/GI: Inspection: abdomen appears normal, Palpation: abdomen is soft and non-tender, in all quadrants, 17:45 Neuro: Orientation: to person, place \T\ time. Mentation: is normal, Motor: moves all fours, strength is normal, Sensation: is normal, 23:19 ECG was reviewed by the Attending Physician. Vital Signs: 17:36 BP 170 / 62; Pulse 82; Resp 18; Temp 97.5; Pulse Ox 97% on R/A; Weight 90.72 kg; Height ph 5 ft. 1 in. ; 23:00 BP 142 / 71; Pulse 85; Resp 17 S; Pulse Ox 98% on R/A; ha1 1018 00:00 BP 131 / 57; Pulse 81; Resp 17; Temp 98(O); Pulse Ox 97% on R/A; Weight 98.88 kg; rg5 Height 5 ft. 1 in. ; Pain 0/10; 00:00 Body Mass Index 41.19 (98.88 kg, 154.94 cm) rg5 10 00:00 Pain Scale: Adult rg5 MDM: 03/12 17:35 Medical Screening Exam initiated cp 03/13 00:30 Data reviewed: vital signs, nurses notes, lab test result(s), EKG, and as a result, I cp will admit patient. 00:30 Differential diagnosis: electrolyte abnormality, cardiac arrhythmia, kidney failure, cp volume depletion, medication side effect. Management of patient was discussed with the following: Hospitalist: DR Feldman will admit after discussion. I considered the following discharge prescriptions or medication management in the emergency department Medications were administered in the Emergency Department. See MAR. Independent interpretation of the following test(s) in the Emergency Department EKG: See my EKG interpretation above. Care significantly affected by the following chronic conditions: Hypertension. Counseling: I had a detailed discussion with the patient and/or guardian regarding the historical points, exam findings, and any diagnostic results supporting the discharge/admit diagnosis, lab results, the need for further work-up and treatment in the hospital. Response to treatment: the patient's symptoms have markedly improved after treatment. 03/12 17:39 Order name: BMP; Complete Time: 21:35 cp 03/12 21:35 Interpretation: Normal except: K 5.7; CL 113; BUN 26; CRE 1.84; GFR 28. cp 03/12 17:39 Order name: CBC with Diff; Complete Time: 21:35 cp 03/12 21:35 Interpretation: Normal except: HGB 10.9; HCT 33.2; RDW 16.6. cp 03/12 17:39 Order name: Magnesium; Complete Time: 21:35 cp 03/12 21:38 Order name: Troponin High Sensitivity; Complete Time: 00:03 cp 03/12 21:38 Order name: PT-INR; Complete Time: 00:03 cp 03/12 21:38 Order name: Ptt, Activated; Complete Time: 00:03 cp 03/12 21:50 Order name: Potassium; Complete Time: 00:03 cp 03/13 00:04 Interpretation: Reviewed. cp 03/13 02:21 Order name: Urinalysis w/ reflexes EDMS 03/13 02:21 Order name: CBC with Automated Diff EDMS 03/13 02:21 Order name: CBC with Automated Diff EDMS 03/13 02:21 Order name: Comprehensive Metabolic Panel EDMS 03/13 02:21 Order name: Comprehensive Metabolic Panel EDMS 03/13 08:41 Order name: CBC with Automated Diff EDMS 03/13 08:57 Order name: Comprehensive Metabolic Panel EDMS 03/12 21:36 Order name: EKG; Complete Time: 21:36 cp 03/13 02:21 Order name: CONS Physician Consult EDMS 03/12 17:39 Order name: IV; Complete Time: 21:13 cp 03/12 21:36 Order name: EKG - Nurse/Tech; Complete Time: 23:16 cp EC/17 23:19 Rate is 65 beats/min. Rhythm is regular. [place] interval is normal. QRS interval is normal. cp QT interval is normal. T waves are Inverted in lead aVR. Interpreted by me. Reviewed by me. Administered Medications: 05:44 Drug: Kayexalate PO 30 grams PO once Route: PO; ha1 03/13 00:00 Follow up: Response: No adverse reaction rg5 03/12 23:42 Drug: Furosemide IVP 20 mg IVP once; give over 2 minutes Route: IVP; Site: left ha1 antecubital; 03/13 00:00 Follow up: Response: No adverse reaction rg5 03/12 23:45 Drug: Albuterol Inhalation 2.5 mg Inhalation every 20 minutes x3 Route: Inhalation; ha1 Disposition: 03/13 09:01 Co-signature as Attending Physician, Darío Agustin MD I reviewed the patient's care rt provided by the Advanced Practice Provider and agree with the diagnosis and treatment plan. Disposition Summary: 03/13/24 00:27 Hospitalization Ordered Notes: Hospitalization Status: Observation cp Provider: Weston Feldman cp Condition: Stable cp Problem: new cp Symptoms: have improved cp Bed/Room Type: Standard cp Location: Telemetry/MedSurg (observation)(03/13/24 13:45) eb Room Assignment: [facility](03/13/24 13:45) Diagnosis - Hyperkalemia cp Forms: - Medication Reconciliation Form cp - SBAR form cp - Leadership Thank You Letter cp Signatures: Dispatcher [employer] Soni Solis RN RN ph Butch Mayers PA PA cp Ambar Li Heidy, RN RN 1 Darío Agustin MD MD rt Erasmo Santiago RN rg5 Corrections: (The following items were deleted from the chart) 00:28 00:27 Telemetry/MedSurg (observation) cp ha1 00:28 00:27 cp ha1 13:45 00:28 [facility] ER HOLD ha1 eb 13:45 00:28 ERHOLD- ha1 eb
--- NOTE | 2024-03-13 00:28 | ER ---
Nurse's Notes [facility] Name: Svetlana Rader Age: 78 yrs Sex: Female : 1945 Arrival Date: 03/12/2024 Time: 17:02 Bed 16 Private MD: Diagnosis: Hyperkalemia Presentation: 03/12 17:36 Chief complaint: Patient states: Had routine labs drawn yesterday, doctors office ph called today and told her to come to the ER because her potassium was high. Coronavirus screen: Vaccine status: Patient reports receiving the 2nd dose of the covid vaccine. Ebola Screen: No symptoms or risks identified at this time. Initial Sepsis Screen: Does the patient meet any 2 criteria? No. Patient's initial sepsis screen is negative. Does the patient have a suspected source of infection? No. Patient's initial sepsis screen is negative. Risk Assessment: Do you want to hurt yourself or someone else?. Onset of symptoms was March 12, 2024. 17:36 Method Of Arrival: Ambulatory 17:36 Acuity: AYAD 3 ph Triage Assessment: 17:39 General: Appears in no apparent distress. comfortable, well groomed, Behavior is calm, ph cooperative, appropriate for age. Pain: Denies pain. Neuro: Level of Consciousness is awake, alert, obeys commands, Oriented to person, place, time, situation. Historical: - Allergies: 17:38 tramadol; ph - PMHx: 17:38 Gout; Hypertension; stroke (TUBIAL LIGATION); ph - PSHx: 17:38 section; TUBIAL LIGATION; ph - Immunization history:: Adult Immunizations up to date. - Infectious Disease History:: Denies. - Social history:: Smoking status: Patient denies any tobacco usage or history of. Screenin/18 00:00 [facility] ED Fall Risk Assessment (Adult) History of falling in the last 3 months, rg5 including since admission No falls in past 3 months (0 pts) Confusion or Disorientation No (0 pts) Intoxicated or Sedated No (0 pts) Impaired Gait No (0 pts) Mobility Assist Device Used No (0 pt) Altered Elimination No (0 pt) Score/Fall Risk Level 0 - 2 = Low Risk Oriented to surroundings, Maintained a safe environment, Hourly rounding (assess needs \T\ fall precautionary measures) done. 00:00 Abuse screen: Denies threats or abuse. Nutritional screening: No deficits noted. rg5 Tuberculosis screening: No symptoms or risk factors identified. Assessment: 03/12 23:00 Reassessment: Patient and/or family updated on plan of care and expected duration. Pain ha1 level reassessed. Patient is alert, oriented x 3, equal unlabored respirations, skin warm/dry/pink. Patient denies pain at this time. 03/13 00:00 General: Appears in no apparent distress. comfortable, Behavior is calm, cooperative, rg5 appropriate for age. 00:00 Pain: Denies pain. Neuro: Level of Consciousness is awake, alert, obeys commands, rg5 Oriented to person, place, time, situation. Cardiovascular: Reports None. Respiratory: Airway is patent Trachea midline Respiratory effort is even, unlabored, Respiratory pattern is regular, symmetrical. GI: Abdomen is round non-distended, Bowel sounds present X 4 quads. Abd is soft and non tender. : No signs and/or symptoms were reported regarding the genitourinary system. EENT: No deficits noted. Derm: No deficits noted. Skin is intact, Skin is dry, Skin is normal. Musculoskeletal: Circulation, motion, and sensation intact. Range of motion:. Vital Signs: 03/12 17:36 BP 170 / 62; Pulse 82; Resp 18; Temp 97.5; Pulse Ox 97% on R/A; Weight 90.72 kg; Height ph 5 ft. 1 in. ; 23:00 BP 142 / 71; Pulse 85; Resp 17 S; Pulse Ox 98% on R/A; ha1 03/13 00:00 BP 131 / 57; Pulse 81; Resp 17; Temp 98(O); Pulse Ox 97% on R/A; Weight 98.88 kg; rg5 Height 5 ft. 1 in. ; Pain 0/10; 00:00 Body Mass Index 41.19 (98.88 kg, 154.94 cm) rg5 03/13 00:00 Pain Scale: Adult rg5 ED Course: 03/12 17:13 Patient arrived in ED. mg5 17:15 Butch Mayers PA is PHCP. cp 17:15 Darío Agustin MD is Attending Physician. cp 17:38 Triage completed. ph 17:39 Arm band placed on Patient placed in an exam room. ph 21:10 Inserted saline lock: 20 gauge in left antecubital area, using aseptic technique. Blood ha1 collected. Flushed with 10 mL NS. 21:13 Magnesium Sent. vk 21:13 CBC with Diff Sent. vk 21:13 BMP Sent. vk 23:17 EKG done, by ED staff. vk 23:31 Ptt, Activated Sent. vk 23:31 PT-INR Sent. vk 23:31 Troponin High Sensitivity Sent. vk 23:31 Potassium Sent. vk 23:32 Initial lab(s) drawn, by la, sent to lab. vk 03/13 00:00 Awaiting bed assignment. rg5 00:00 Patient has correct armband on for positive identification. Bed in low position. Side rg5 rails up X 1. Adult w/ patient. Provided Education on: needs for admit. 00:00 Door closed. Noise minimized. Warm blanket given. rg5 00:00 No provider procedures requiring assistance completed. Patient admitted, IV remains in rg5 place. intact, No redness/swelling at site. 00:14 Erasmo Santiago RN is Primary Nurse. rg5 00:27 Weston Feldman MD is Hospitalizing Provider. cp 08:39 Primary Nurse role handed off by Erasmo Santiago RN Administered Medications: 03/12 05:44 Drug: Kayexalate PO 30 grams PO once Route: PO; ha1 03/13 00:00 Follow up: Response: No adverse reaction rg5 03/12 23:42 Drug: Furosemide IVP 20 mg IVP once; give over 2 minutes Route: IVP; Site: left ha1 antecubital; 03/13 00:00 Follow up: Response: No adverse reaction 5 03/12 23:45 Drug: Albuterol Inhalation 2.5 mg Inhalation every 20 minutes x3 Route: Inhalation; ha1 Medication: 03/13 01:13 VIS not applicable for this client. rg5 Outcome: 00:00 Admitted to ER Hold. Please see [facility] for further documentation. rg5 00:00 Condition: stable 00:00 Instructed on the need for admit, 00:27 Decision to Hospitalize by Provider. cp 15:13 Patient left the ED. db Signatures: Soni Cornell RN RN Butch Myaers PA PA cp Ambar Li Breanna Stubbs RN RN [facility] Violet Erickson, RN RN db Patricia Shelby mg5 Magali Womack Rommel, RN RN rg5
[2024-03-13] MEDS ORDERED: ACETAMINOPHEN 325 MG TABLET PO PRN (02:15)
[2024-03-13] MEDS ORDERED: ONDANSETRON 4 MG/2 ML VIAL IV PRN (02:15)
--- NOTE | 2024-03-13 02:15 | P.HP ---
Certification for Inpatient Patient admitted to: Inpatient With expected LOS: >2 Midnights Practitioner: I am a practitioner with admitting privileges, knowledge of patient current condition, hospital course, and medical plan of care. Services: Services provided to patient in accordance with Admission requirements found in Title 42 Section 412.3 of the Code of Federal Regulations Patient History Date of Service: 03/13/24 Reason for admission: Hyperkalemia, ADEEL History of Present Illness: 78-year-old female with a past medical history of hypertension CKD stage II , Osteoarthritis, gout, CVA who was sent to ER by the PCPs office after having found to have hyperkalemia in the blood work. She went to PCPs office for routine blood work and was called back as she had hyperkalemia.Patient reports she had some routine blood work drawn yesterday and received a phone call from her doctor's office saying that her potassium level was elevated. Patient does not express any complaints and otherwise feels fine. She was sent to ER with the referring family physician Patient was assessed in the ER and was admitted for further management of hyperkalemia and acute kidney injury Allergies tramadol Allergy (Verified 09/05/17 05:20) Itching/Hives/Rash Home medications list reviewed: Yes Home Medications: Atorvastatin Calcium [Lipitor] 40 mg PO BEDTIME #30 tab 09/06/17 Clopidogrel Bisulfate [Plavix*] 75 mg PO DAILY #30 tablet 09/06/17 Amlodipine [Norvasc*] 10 mg PO DAILY 02/21/24 Spironolactone 25 mg PO DAILY 02/21/24 Telmisartan 80 mg PO DAILY 02/21/24 hydroCHLOROthiazide [Hydrochlorothiazide] 12.5 mg PO DAILY 02/21/24 - Past Medical/Surgical History Diabetic: No Past Medical History: Reviewed- Non-Contributory -: Hypertension -: Osteoarthritis -: CKD -: Gout -: CVA Past Surgical History: Reviewed- Non-Contributory -: Bilateral knee replacement -: -: Fatty Cyst removed -: Hysterectomy Psychosocial/ Personal History: Patient lives at home - Family History Mother -: Hypertension Father -: Hypertension Brother -: Diabetes Sister -: Diabetes - Social History Smoking Status: Never smoker Alcohol use: No CD- Drugs: No Caffeine use: Yes Review of Systems 10-point ROS is otherwise unremarkable Physical Examination - Vital Signs Temperature: 97.2 F Blood Pressure: 140/62 Pulse: 78 Respirations: 18 Pulse Ox (%): 95 - Physical Exam General: Alert, In no apparent distress, Oriented x3 HEENT: Atraumatic, Normocephalic Neck: Supple, 2+ carotid pulse no bruit Respiratory: Clear to auscultation bilaterally, Normal air movement Cardiovascular: No edema, Regular rate/rhythm, Normal S1 S2 Capillary refill: <2 Seconds Gastrointestinal: Soft and benign, W/out hepatosplenomegaly, No tenderness Musculoskeletal: No clubbing, No swelling Integumentary: No rashes, No breakdown Neurological: Normal speech, Normal strength at 5/5 x4 extr Lymphatics: No axilla or inguinal lymphadenopathy - Studies Laboratory Data (last 24 hrs) 03/12/24 03/12/24 03/12/24 23:29 23:29 21:10 WBC 8.70 Hgb 10.9 L Hct 33.2 L Plt Count 249 PT 10.5 INR 0.94 APTT 34.5 Sodium Potassium 5.1 BUN Creatinine Glucose Magnesium 03/12/24 21:10 WBC Hgb Hct Plt Count PT INR APTT Sodium 138 Potassium 5.7 H BUN 26 H Creatinine 1.84 H Glucose 92 Magnesium 2.3 Assessment and Plan - Plan Hyperkalemia Will give [facility] Monitor closely under telemetry Will monitor potassium levels Will hold LINDSAY inhibitors/ARB and spironolactone for now Acute kidney injury on CKD stage II Started on IV hydration Monitor renal parameters Nephrology consult if renal parameters not improving Hypertension Antihypertensives titrated Continue home medications and titrate as needed Will hold LINDSAY inhibitors/ARB and spironolactone for now Hyperlipidemia Continue statin Anemia of chronic disease Monitor H&H closely No overt bleeding at this time GI/DVT prophylaxis Advanced directive full code Discharge Plan: Home Plan to discharge in: 48 Hours - Advance Directives Does patient have a Living Will: No Does patient have a Durable POA for Healthcare: No - Code Status/Comfort Care Code Status: Full Code Time Spent Managing Pts Care (In Minutes): 48
[2024-03-13] MEDS: SODIUM ZIRCONIUM CYCLOSILICATE 10 GM/PKT PO ONE ×2 (02:19→08:15)
[2024-03-13 02:45] VITALS: BMI 41.1
[2024-03-13] MEDS: NA CHLORIDE 0.9% 1,000 ML IV SCH (03:00)
[2024-03-13] MEDS ORDERED: NA CHLORIDE 0.9% 1,000 ML ONE (04:35)
--- NOTE | 2024-03-13 07:00 | P.CNS ---
Date of Consult: 03/13/24 Reason for Consult: ADEEL/ Hyperkalemia Requesting Physician: Loren Soliman Chief Complaint: Hyperkalemia, ADEEL History of Present Illness: 78-year-old female with a past medical history of hypertension CKD stage II , Osteoarthritis, gout, CVA who was sent to ER by the PCPs office after having found to have hyperkalemia in the blood work. She went to PCPs office for routine blood work and was called back as she had hyperkalemia.Patient reports she had some routine blood work drawn yesterday and received a phone call from her doctor's office saying that her potassium level was elevated. Patient does not express any complaints and otherwise feels fine. She was sent to ER with the referring family physician Patient was assessed in the ER and was admitted for further management of hyperkalemia and acute kidney injury [id number] 17:37 This 78 yrs old Black Female presents to ER via Unassigned with complaints of Abnormal cp Lab Results. 17:37 Patient is a 78-year-old female who presents to the emergency department after being cp referred by her family physician. Patient reports she had some routine blood work drawn yesterday and received a phone call from her doctor's office saying that her potassium level was elevated. Patient does not express any complaints and otherwise feels fine. Reports eating bananas and romansh fries lately. Allergies tramadol Allergy (Verified 03/13/24 15:30) Itching/Hives/Rash Home medications list reviewed: Yes Home Medications: Atorvastatin Calcium [Lipitor] 40 mg PO BEDTIME #30 tab 09/06/17 Clopidogrel Bisulfate [Plavix*] 75 mg PO DAILY #30 tablet 09/06/17 Amlodipine [Norvasc*] 10 mg PO DAILY 02/21/24 Spironolactone 25 mg PO DAILY 02/21/24 Telmisartan 80 mg PO DAILY 02/21/24 hydroCHLOROthiazide [Hydrochlorothiazide] 12.5 mg PO DAILY 02/21/24 - Past Medical/Surgical History Diabetic: No -: Hypertension -: Osteoarthritis -: CKD -: Gout -: CVA -: Bilateral knee replacement -: -: Fatty Cyst removed -: Hysterectomy Psychosocial/ Personal History: Patient lives at home - Family History Mother Medical History: Hypertension Father Medical History: Hypertension Brother Medical History: Diabetes Sister Medical History: Diabetes - Social History Alcohol use: No CD- Drugs: No Caffeine use: Yes Review of Systems 10-point ROS is otherwise unremarkable Physical Examination Temp Pulse Resp BP Pulse Ox 98 F 70 16 128/69 97 03/13/24 05:24 03/13/24 05:24 03/13/24 05:24 03/13/24 05:24 03/13/24 05:24 General: In no apparent distress, Oriented x3, Cooperative HEENT: Atraumatic Neck: Supple Respiratory: Clear to auscultation bilaterally Cardiovascular: No edema, Regular rate/rhythm Gastrointestinal: Soft and benign, Non-distended Musculoskeletal: No clubbing, No contractures Integumentary: No rashes, No cyanosis Neurological: Normal speech Laboratory Data (last 24 hrs) 03/12/24 03/12/24 03/12/24 23:29 23:29 21:10 WBC 8.70 Hgb 10.9 L Hct 33.2 L Plt Count 249 PT 10.5 INR 0.94 APTT 34.5 Sodium Potassium 5.1 BUN Creatinine Glucose Magnesium 03/12/24 21:10 WBC Hgb Hct Plt Count PT INR APTT Sodium 138 Potassium 5.7 H BUN 26 H Creatinine 1.84 H Glucose 92 Magnesium 2.3 Imagings Data: [id number] EXAM DESCRIPTION: US - Abdomen Pelvis Scan US - 11/13/2023 9:35 am CLINICAL HISTORY: High blood pressure N18.32, I10 COMPARISON: No comparisons FINDINGS: The bilateral kidneys are normal in size, the right measuring 8.8 x 4.7 x 3.9 cm and the left measuring 9.0 x 4.6 x 4.2 cm. Cysts are present in both kidney cortices. Aortic velocity: 97 cm/second Right proximal renal artery: 103 cm/second Right mid renal artery: 134 cm/second Right distal renal artery: 114 cm/second Right renal arcuate artery resistive index: 0.8 Right renal artery / aorta ratio: 1.4 Left proximal renal artery: 152 cm/second Left mid renal artery: 170 cm/second Left distal renal artery: 193 cm/second Left renal arcuate artery resistive index: 0.8 Left renal artery/aorta ratio: 2.0 Normal waveforms demonstrated within the bilateral renal arteries. IMPRESSION: Mildly elevated left renal artery velocities are noted which may indicate mild stenosis. MRA of the renal arteries could be performed for further evaluation. Conclusions/Impression: Stage I ADEEL in the setting of hypovolemia CKD IIIb -No NSAIDs -Continue IVF Hyperkalemia -Lokelma as ordered -Hold spironolactone and telmisartan at this time HTN with CKD -Hydralazine prn -Restart Amlodipine as indicated Anemia in chronic illness -Monitor H&H Hospitalist and ER notes reviewed Thank you kindly for the consultation
[2024-03-13 08:35] LABS: Absolute Basophils 0.1 K/uL (0-0.5); Absolute Eosinophils 0.3 K/uL (0-0.5); Absolute Lymphocytes (CBC) 1.6 K/uL (0.7-4.9); Absolute Monocytes 0.5 K/uL (0.1-1.3); Absolute Neutrophil 3.8 K/uL (1.8-8.0); Basophils % 1.3 % (0-1.3); Eosinophils % 5.2 % (0-4.4); Hematocrit 30.5 % (36.0-45.0); Lymphocytes % 25.5 % (15.3-44.8); MCH 27.5 pg (27.0-35.0); MCHC 32.7 g/dL (32.0-36.0); MCV 84.2 fL (80-100); MPV 8.5 fL (7.6-11.3); Monocytes % 8.1 % (3.3-12.3); Neutrophils % 59.9 % (41.7-73.7); Nucleated Red Blood Cells % 0.2 % (0-0); Platelets 232 thou/uL (152-406); RBC Red Blood Cell Count 3.62 M/uL (3.86-4.86); Red Cell Distribution Width 16.3 % (12.1-15.2)
[2024-03-13 08:50] LABS: ALT/SGPT 15 U/L (13-56); Albumin 3.3 g/dL (3.4-5.0); Albumin/Globulin Ratio 0.9 (1.1-1.8); Alkaline Phosphatase 40 U/L (45-117); Anion Gap 7.1 mEq/L (5.0-15.0); BUN Blood Urea Nitrogen 23 mg/dL (7-18); Bicarbonate 25 mEq/L (21-32); Bilirubin Total 0.2 mg/dL (0.2-1.0); Globulin 3.8 g/dL (2.3-3.5); Glomerular Filtration Rate 33 ml/min (=/>90); Glucose Level 88 mg/dL (74-106); Potassium 5.1 mEq/L (3.5-5.1); Protein, Total 7.1 g/dL (6.4-8.2); Sodium Level 141 mEq/L (136-145)
[2024-03-13 08:57] LABS: AST/SGOT < 10 U/L (15-37)
[2024-03-13] MEDS: ENOXAPARIN 30 MG/0.3 ML SQ SCH (09:00)
[2024-03-13] MEDS ORDERED: ENOXAPARIN 30 MG/0.3 ML SQ ONE (09:25)
[2024-03-13 10:22] LABS: Specific Gravity 1.009 (1.005-1.030); Urine Bilirubin NEGATIVE (Negative); Urine Blood Negative (Negative); Urine Clarity Clear (Clear); Urine Color Colorless (Yellow); Urine Glucose NEGATIVE (Negative); Urine Ketones NEGATIVE (Negative); Urine Microscopic Reflex YN NO UMIC; Urine Nitrite NEGATIVE (Negative); Urine Protein NEGATIVE (Negative); Urine Urobilinogen Normal (Normal)
[2024-03-13] MEDS: HYDRALAZINE HCL 20 MG/ML VIAL IV PRN (16:05)
--- NOTE | 2024-03-14 02:39 | CON ---
Date of Consultation: 03/13/2024 Chief Complaint: Hyperkalemia, acute kidney injury. History Of Present Illness: The patient is a 78-year-old woman with history of hypertension, chronic kidney disease stage 3, osteoarthritis, gout, CVA. She was referred to the emergency room when rout ine blood work revealed potassium of 6.3. The patient was instructed to go to emergency room to re-e valuate her lab work and to start treatment for hyperkalemia in the emergency room. The patient rece ntly noticed lower extremity edema, although she denied dysuria, hematuria, difficulty voiding. She denied nonsteroidal anti-inflammatory medication. She has history of hypertension, hypercholesterole heide, osteoarthritis. The patient denied fever, chills, nausea, vomiting, constipation. Review of Systems: Constitutional: Denies syncope. Eyes: Denies new vision changes. Ears, Nose, Mouth, and Throat: Denies sore throat, earache. Respiratory: Denies PND, orthopnea. Cardiovascular: Denies chest pain, palpitation, syncope. GI: Denies nausea, vomiting, constipation. Denies the melena, hematemesis. : Denies dysuria, hematuria, difficulty voiding. Denies back pain. All other systems reviewed and all are negative. Past Medical History: Hypertension, osteoarthritis, CKD stage 3, gout, CVA. Past Surgical History: Bilateral knee replacement, , hysterectomy, skin cyst. Family History: Mother, hypertension. Father, hypertension. Brother and sister, diabetes. Social History: Never smoker. Denies alcohol and denies drugs. Physical Examination: General: Patient is alert, not in acute distress. Eyes: Anicteric. Sclerae EOMI. Ears, Nose, Mouth and Throat: Oral mucosa moist. No pallor. Neck: Supple. No bruits. Lungs: Clear to auscultation bilaterally. Heart: S1, S2. Abdomen: Soft, obese, nontender. No rebound. No guarding. Extremities: Slight peripheral edema. Laboratory Work: Hemoglobin 10.9, platelet count is 249, hematocrit 33.2, WBC 8.7. Creatinine 1.84, BUN 26, potassium 5.7, sodium 138, glucose 92, magnesium 2.3. Impression And Plan: 1.Hyperkalemia. Patient was treated with Lokelma. The patient was taken off angiotensin receptor b locker and spironolactone. Patient denies nonsteroidal anti-inflammatory medication. Plan is to brian ck renal ultrasound to rule out hydronephrosis. The patient will continue low-potassium diet. IV fl uids were started for acute kidney injury. Continue to monitor renal panel and plan is to check CK l evel to rule out rhabdomyolysis, hypertension. The plan is to check renal artery Doppler. Angiotens in receptor jada is stopped. Spironolactone stopped as well. Blood pressure medications were joanie nged to hydralazine and amlodipine. The patient may be a candidate for diuretic when renal function is stable, although she cannot take spironolactone and plan is to start Lasix as needed. 2.Hyperlipidemia. Continue statin and check CK level to rule out rhabdomyolysis. 3.History of osteoarthritis. The patient denies nonsteroidal anti-inflammatory medication. Plan wa s discussed with the patient to continue low-potassium diet and to modify her blood pressure medicati on. Renal ultrasound is pending to rule out obstructive uropathy and evaluate for possible renal art tod stenosis. GUILHERME/LILLY Voice ID: [id number] Report ID: [id number]
[2024-03-14 07:42] LABS: Absolute Basophils 0.1 K/uL (0-0.5); Absolute Eosinophils 0.3 K/uL (0-0.5); Absolute Lymphocytes (CBC) 1.7 K/uL (0.7-4.9); Absolute Monocytes 0.5 K/uL (0.1-1.3); Absolute Neutrophil 3.3 K/uL (1.8-8.0); Basophils % 1.5 % (0-1.3); Eosinophils % 4.8 % (0-4.4); Hematocrit 28.7 % (36.0-45.0); Hemoglobin 9.5 g/dL (12.0-15.0); MCH 27.8 pg (27.0-35.0); MCHC 33.2 g/dL (32.0-36.0); MCV 83.9 fL (80-100); MPV 8.2 fL (7.6-11.3); Monocytes % 9.2 % (3.3-12.3); Neutrophils % 55.5 % (41.7-73.7); Nucleated Red Blood Cells % 0.1 % (0-0); Platelets 235 thou/uL (152-406); RBC Red Blood Cell Count 3.42 M/uL (3.86-4.86); Red Cell Distribution Width 16.3 % (12.1-15.2)
[2024-03-14 07:59] LABS: ALT/SGPT < 14 U/L (13-56); AST/SGOT < 10 U/L (15-37); Albumin 2.9 g/dL (3.4-5.0); Albumin/Globulin Ratio 0.8 (1.1-1.8); Alkaline Phosphatase 36 U/L (45-117); Anion Gap 8.9 mEq/L (5.0-15.0); BUN Blood Urea Nitrogen 21 mg/dL (7-18); Bicarbonate 24 mEq/L (21-32); Bilirubin Total 0.3 mg/dL (0.2-1.0); Creatine Phosphokinase 70 U/L (26-192); Globulin 3.6 g/dL (2.3-3.5); Glomerular Filtration Rate 40 ml/min (=/>90); Glucose Level 85 mg/dL (74-106); Potassium 4.9 mEq/L (3.5-5.1); Protein, Total 6.5 g/dL (6.4-8.2); Sodium Level 143 mEq/L (136-145)
--- NOTE | 2024-03-14 08:15 | RAD REPORT ---
EXAMINATION: US RENAL CLINICAL INDICATION: Chronic renal insufficiency TECHNIQUE: Real-time ultrasonography of the abdomen was performed. COMPARISON: October 2023. FINDINGS: Right kidney measures 10 cm with a normal echotexture. 1.8 cm cyst. Left kidney measures 10 cm with normal echotexture. 2.4 cm cyst contains a septation. It is unchanged prior exam. No hydronephrosis Cholelithiasis No gross abnormality bladder. IMPRESSION: No hydronephrosis. 2.4 cm complex cyst left kidney probably benign. Follow-up renal ultrasound in 6 months recommended f or reevaluation
[2024-03-14] MEDS: HYDRALAZINE HCL 25 MG TABLET PO SCH (09:00)
[2024-03-14] MEDS: AMLODIPINE 10 MG TAB PO SCH (09:06)
[2024-03-14] MEDS: carvediloL 6.25 MG TAB PO SCH (09:06)
[2024-03-14 12:30] VITALS: O2SAT 95
[2024-03-14 12:55] VITALS: BP 121/55; TEMP 97.7
--- NOTE | 2024-03-14 17:15 | PN ---
Date of Progress Note: 03/14/2024 Subjective: No overnight event. Potassium down to 4.9, creatinine down 1.3. The patient can be dis charged from Nephrology point of view to follow up with Nephrology Clinic in 1-2 weeks. Physical Examination: Vital Signs: Temperature 97.9, pulse of 69, blood pressure 121/55. General: Awake, alert, oriented x3, not in distress. Neck: Supple. No elevated JVD. Heart: Regular rhythm. Normal S1, S2. Chest: Clear to auscultation bilaterally. No rales or wheezes. Abdomen: Soft and nontender. Extremities: No edema. Laboratory Data: White count 5.9, hemoglobin 9.5. Sodium 140, potassium 4.9, creatinine 1.3. Assessment And Plan: 1.Chronic kidney disease. Creatinine at baseline. Continue current medication. Renally dose medic ation. Avoid telmisartan and aldactone at this time. 2.Hyperkalemia, resolved. Due to chronic kidney disease, hold telmisartan and aldactone. Can resum e hydrochlorothiazide. 3.Hypertension. Blood pressure controlled. Continue amlodipine and hydralazine. Can add carvedilo l or resume home dose of hydrochlorothiazide. 4.Anemia of chronic disease. Hemoglobin is stable. The patient can be discharged from Nephrology p oint of view to follow up in Nephrology Clinic in 1-2 weeks. ROLY Voice ID: [id number] Report ID: [id number]
[2024-03-14] MEDS ORDERED: ATORVASTATIN 40 MG TAB PO SCH (21:00)
[2024-03-15] MEDS ORDERED: CLOPIDOGREL 75 MG TABLET PO SCH (09:00)
[2024-03-15] MEDS ORDERED: AMLODIPINE 10 MG TAB PO SCH (09:00)
--- NOTE | 2024-03-17 13:07 | EKG ---
Test Date: 2024-03-12 Test Time: 23:13:53 Disk And Tape Machine Tender: ALFREDO MEASUREMENT RESULTS: Intervals: Rate: 65 MD: 176 QRSD: 88 QT: 402 QTc: 418 [place]: P: 35 MD: 176 QRS: -8 T: 21 INTERPRETIVE STATEMENTS: Normal sinus rhythm Low voltage QRS Borderline ECG Compared to ECG 02/21/2024 11:13:55 Low QRS voltage now present Sinus bradycardia no longer present Myocardial infarct finding no longer present Electronically Signed On 03-17-24 12:55:13 CDT by Clay Senior
== END 2024-03-14 16:21 | disposition home or self-care (01) | DRG 641 ==
LOC: ER 17:02 → ERHOLD 03-13 02:15 → 4TH 03-13 13:58
PROVIDERS: ADMIT Family Medicine; ATTEND Hospitalist
DX: E87.5 Hyperkalemia (principal); N17.9 Acute kidney failure, unspecified; I10 Essential (primary) hypertension; M10.9 Gout, unspecified; I12.9 Hypertensive chronic kidney disease with stage 1 through stage 4 chronic kidney disease, or unspecified chronic kidney disease; N18.32 Chronic kidney disease, stage 3b; D63.1 Anemia in chronic kidney disease; M19.90 Unspecified osteoarthritis, unspecified site; E78.5 Hyperlipidemia, unspecified; Z88.5 Allergy status to narcotic agent; Z98.51 Tubal ligation status; Z79.02 Long term (current) use of antithrombotics/antiplatelets; Z79.899 Other long term (current) drug therapy; Z96.653 Presence of artificial knee joint, bilateral; Z90.710 Acquired absence of both cervix and uterus
CPT/HCPCS: 36415; 76770; 80048; 80053; 81003; 82550; 83735; 84132; 84484; 85025; 85610; 85730; 93005; 94760; 96374; 99285; J0360; J1650; J1940; J7030; J7613